=== PATIENT | male | born 1970 | race Caucasian/White ===

== ENCOUNTER 2018-08-25 08:17 | Emergency (ER) | payer MEDICAID, OTHER ==
[~2018-08-25] VITALS: Ht 180.3 cm; Wt 118.2 kg
[~2018-08-25 08:17] MED LIST: DIPH25CA83 PO
[2018-08-25 09:23] VITALS: BP 150/87
== END 2018-08-25 09:40 | disposition home or self-care (01) ==
LOC: ER 08:18
DX: R06.00 Dyspnea, unspecified (principal); G89.29 Other chronic pain; Z98.890 Other specified postprocedural states; Z88.5 Allergy status to narcotic agent; Z79.899 Other long term (current) drug therapy
CPT/HCPCS: 93971; 99284

== ENCOUNTER 2019-02-06 10:57 | Emergency (ER) | payer MEDICAID, OTHER ==
[~2019-02-06] VITALS: Ht 180.3 cm; Wt 122.0 kg
[2019-02-06] MEDS ORDERED: ipratropium/albuterol 3ml nebule NEB ONE (12:15)
[2019-02-06 12:42] LABS: BASOPHILS # (AUTO) 0.1 X10'3 (0-0.2); BASOPHILS % (AUTO) 1.3 % (0-1); EOSINOPHILS # (AUTO) 0.1 X10'3 (0-0.9); EOSINOPHILS % (AUTO) 1.6 % (0-6); HEMATOCRIT 46.2 % (42.0-52.0); HEMOGLOBIN 16.3 g/dl (14.0-17.9); LYMPHOCYTES # (AUTO) 1.1 X10'3 (1.1-4.8); LYMPHOCYTES % (AUTO) 13.1 % (21-51); MEAN CORPUSCULAR HGB CONC 35.3 g/dL (33.0-36.5); MEAN CORPUSCULAR VOLUME 101.9 FL (78-98); MEAN PLATELET VOLUME 8.2 FL (7.4-10.4); MONOCYTES # (AUTO) 0.9 X10'3 (0-0.9); NEUTROPHILS # (AUTO) 6.3 X10'3 (1.8-7.7); PLATELET COUNT 183 X10'3 (140-440); RED BLOOD COUNT 4.54 X10'6 (4.70-6.10); RED CELL DISTRIBUTION WIDTH 13.9 % (11.5-14.5); WHITE BLOOD COUNT 8.6 X10'3 (4.5-11.0)
--- NOTE | 2019-02-06 12:42 | NUR ---
Pt reports improvement in SOB symptoms after neb treatment.
[2019-02-06 12:55] LABS: ALANINE AMINOTRANSFERASE 52 U/L (12-78); ALBUMIN/GLOBULIN RATIO 0.8 (1.1-1.5); ALKALINE PHOSPHATASE 81 IU/L (46-116); ANION GAP 9 (8-16); ASPARTATE AMINO TRANSFERASE 47 U/L (10-37); BILIRUBIN,TOTAL 0.7 MG/DL (0.1-1.0); BLOOD UREA NITROGEN 5 MG/DL (7-18); BUN/CREATININE RATIO 5.3 (5.4-32.0); CALCIUM 7.7 MG/DL (8.5-10.1); CHLORIDE 104 MMOL/L (99-107); CREATININE 0.94 MG/DL (0.60-1.10); GLUCOSE 165 MG/DL (70-104); POTASSIUM 3.2 MMOL/L (3.5-5.1); SODIUM 142 MMOL/L (135-145); TOTAL CARBON DIOXIDE 29.3 MMOL/L (24-32); TOTAL PROTEIN 6.8 G/DL (6.4-8.2); eGFR 86 ML/MIN
[2019-02-06 13:03] LABS: MAGNESIUM 2.1 MG/DL (1.5-2.4)
[2019-02-06] MEDS ORDERED: ALBU8.5H8 IH (13:18)
[2019-02-06 13:28] VITALS: BP 189/91
== END 2019-02-06 13:30 | disposition home or self-care (01) ==
LOC: ER 10:57
DX: R06.02 Shortness of breath (principal); R06.00 Dyspnea, unspecified; R60.0 Localized edema; G89.29 Other chronic pain; Z98.890 Other specified postprocedural states; Z88.5 Allergy status to narcotic agent; Z79.899 Other long term (current) drug therapy
CPT/HCPCS: 36415; 71045; 80053; 83735; 83880; 84484; 85025; 94640; 94760; 99284

== ENCOUNTER 2020-05-01 17:01 | Emergency (ER) | payer MEDICAID ==
[~2020-05-01] VITALS: Ht 180.3 cm; Wt 113.6 kg
[~2020-05-01 17:01] MED LIST changes: +ALBU8.5H8 IH
[2020-05-01 20:06] LABS: BASOPHILS % (AUTO) 0.1 % (0-1); EOSINOPHILS # (AUTO) 0.2 X10'3 (0-0.9); HEMATOCRIT 39.4 % (42.0-52.0); HEMOGLOBIN 13.5 g/dl (14.0-17.9); LYMPHOCYTES # (AUTO) 0.8 X10'3 (1.1-4.8); LYMPHOCYTES % (AUTO) 5.1 % (21-51); MEAN CORPUSCULAR HEMOGLOBIN 31.8 PG (27.0-31.0); MEAN CORPUSCULAR HGB CONC 34.2 g/dL (33.0-36.5); MEAN PLATELET VOLUME 7.6 FL (7.4-10.4); MONOCYTES # (AUTO) 1.2 X10'3 (0-0.9); MONOCYTES % (AUTO) 7.9 % (2-12); NEUTROPHILS # (AUTO) 12.9 X10'3 (1.8-7.7); NEUTROPHILS % (AUTO) 85.9 % (42-75); PLATELET COUNT 476 X10'3 (140-440); RED BLOOD COUNT 4.23 X10'6 (4.70-6.10); RED CELL DISTRIBUTION WIDTH 14.2 % (11.5-14.5)
[2020-05-01 20:13] LABS: ALANINE AMINOTRANSFERASE 43 U/L (12-78); ALBUMIN 2.7 G/DL (3.4-5.0); ALBUMIN/GLOBULIN RATIO 0.5 (1.1-1.5); ALKALINE PHOSPHATASE 127 IU/L (46-116); ANION GAP 10 (8-16); ASPARTATE AMINO TRANSFERASE 37 U/L (10-37); BILIRUBIN,TOTAL 0.7 MG/DL (0.1-1.0); BLOOD UREA NITROGEN 8 MG/DL (7-18); BUN/CREATININE RATIO 9.5 (5.4-32.0); CALCIUM 8.8 MG/DL (8.5-10.1); CHLORIDE 97 MMOL/L (99-107); CREATININE 0.84 MG/DL (0.60-1.10); GLUCOSE 115 MG/DL (70-104); POTASSIUM 3.3 MMOL/L (3.5-5.1); SODIUM 136 MMOL/L (135-145); TOTAL PROTEIN 8.4 G/DL (6.4-8.2); eGFR > 90 ML/MIN
[2020-05-01 20:21] LABS: TOTAL CELLS COUNTED 100
[2020-05-01 20:22] LABS: PLATELET ESTIMATE INCREASED
[2020-05-01] MEDS ORDERED: BACDS PO (20:35)
[2020-05-01] MEDS ORDERED: CEPH250T PO (20:35)
[2020-05-01] MEDS ORDERED: ketorolac tromethamine 15mg/ml inj. IV ONE (20:45)
[2020-05-01] MEDS ORDERED: cephalexin 500mg capsule PO ONE (20:45)
[2020-05-01] MEDS ORDERED: sulfamethoxazole/trimethoprim DS (800/160mg) tablet PO ONE (20:45)
[2020-05-01 20:57] VITALS: BP 148/82
== END 2020-05-01 21:01 | disposition home or self-care (01) ==
LOC: ER 17:01
DX: L03.115 Cellulitis of right lower limb (principal); G89.29 Other chronic pain; M54.9 Dorsalgia, unspecified; F17.200 Nicotine dependence, unspecified, uncomplicated; F12.10 Cannabis abuse, uncomplicated; Z88.5 Allergy status to narcotic agent; Z79.899 Other long term (current) drug therapy
CPT/HCPCS: 36415; 80053; 83605; 84145; 85007; 85025; 87040; 96374; 99283; J1885

== ENCOUNTER 2021-03-06 13:53 | Inpatient (IN) | payer MEDICAID ==
[~2021-03-06] VITALS: Ht 180.3 cm; Wt 118.0 kg
[~2021-03-06 13:53] MED LIST changes: +ALBU8.5H17 IH; -ALBU8.5H8 IH; +adenosine 3mg/ml 2ml vial IV ONE; +amiodarone 50MG/ML inj IV ONE
[2021-03-06] MEDS ORDERED: aspirin 81mg tab.chew PO ONE (14:00)
[2021-03-06] MEDS ORDERED: normal saline 1000ML IV soln IVB ONE (14:00)
[2021-03-06] MEDS ORDERED: adenosine 3mg/ml 2ml vial IV ONE (14:00)
[2021-03-06] MEDS ORDERED: amiodarone 150mg/dext, iso-os 100 ML IV ONE (14:10)
[2021-03-06] MEDS: amiodarone/D5 360MG/200ML BAG 200 ML IV SCH ×3 (14:10→22:45)
[2021-03-06 14:35] LABS: BASOPHILS # (AUTO) 0.1 X10'3 (0-0.2); BASOPHILS % (AUTO) 0.7 % (0-1); EOSINOPHILS # (AUTO) 0.1 X10'3 (0-0.9); HEMATOCRIT 33.7 % (42.0-52.0); HEMOGLOBIN 11.5 g/dl (14.0-17.9); LYMPHOCYTES % (AUTO) 12.3 % (21-51); MEAN CORPUSCULAR HGB CONC 34.1 g/dL (33.0-36.5); MEAN CORPUSCULAR VOLUME 90.8 FL (78-98); MEAN PLATELET VOLUME 7.6 FL (7.4-10.4); MONOCYTES # (AUTO) 0.9 X10'3 (0-0.9); MONOCYTES % (AUTO) 10.5 % (2-12); NEUTROPHILS # (AUTO) 6.1 X10'3 (1.8-7.7); NEUTROPHILS % (AUTO) 75.5 % (42-75); PLATELET COUNT 375 X10'3 (140-440); RED BLOOD COUNT 3.71 X10'6 (4.70-6.10); RED CELL DISTRIBUTION WIDTH 14.9 % (11.5-14.5); WHITE BLOOD COUNT 8.1 X10'3 (4.5-11.0)
[2021-03-06 14:47] LABS: ALANINE AMINOTRANSFERASE 21 U/L (12-78); ALBUMIN 2.5 G/DL (3.4-5.0); ALBUMIN/GLOBULIN RATIO 0.6 (1.1-1.5); ALKALINE PHOSPHATASE 76 IU/L (46-116); ANION GAP 10 (8-16); ASPARTATE AMINO TRANSFERASE 19 U/L (10-37); BILIRUBIN,TOTAL 0.5 MG/DL (0.1-1.0); BLOOD UREA NITROGEN 19 MG/DL (7-18); BUN/CREATININE RATIO 16.2 (5.4-32.0); CALCIUM 7.2 MG/DL (8.5-10.1); CHLORIDE 106 MMOL/L (99-107); CREATININE 1.17 MG/DL (0.60-1.10); GLUCOSE 141 MG/DL (70-104); POTASSIUM 3.5 MMOL/L (3.5-5.1); SODIUM 142 MMOL/L (135-145); TOTAL CARBON DIOXIDE 26.3 MMOL/L (24-32); TOTAL PROTEIN 6.7 G/DL (6.4-8.2); eGFR 66 ML/MIN
[2021-03-06 14:54] LABS: TROPONIN I 0.08 NG/ML (0.0-0.05)
[2021-03-06] MEDS ORDERED: diltiazem 5mg/ml 5ml inj. IV ONE (16:35)
[2021-03-06] MEDS ORDERED: diltiazem-NS 100mg/100ml 100 ML IV SCH (16:40)
[2021-03-06] MEDS ORDERED: HYDR-3686 PO (17:08)
[2021-03-06] MEDS ORDERED: LISI-790 PO (17:08)
[2021-03-06] MEDS ORDERED: heparin 10,000 units/1 ML INJ IV ONE ×2 (17:20)
[2021-03-06] MEDS: heparin 25,000 UNIT/250ml bag 250 ML IV SCH (17:40)
[2021-03-06 17:42] LABS: ETHANOL < 0.010 GM/DL (0.0-0.010)
[2021-03-06] MEDS ORDERED: hydrOXYzine 25 MG tablet PO PRN (18:15)
[2021-03-06 18:29] LABS: URINE AMPHETAMINE SCREEN POSITIVE (Neg); URINE BARBITUATE SCREEN NEGATIVE (Neg); URINE BENZODIAZEPINES SCREEN NEGATIVE (Neg); URINE CANNABINOID SCREEN NEGATIVE (Neg); URINE COCAINE SCREEN NEGATIVE (Neg); URINE METHADONE SCREEN NEGATIVE (Neg); URINE OPIATE SCREEN NEGATIVE (Neg); URINE PHENCYCLIDINE SCREEN NEGATIVE (Neg)
[2021-03-06 18:36] LABS: CLARITY,URINE CLEAR (Clear); COLOR,URINE YELLOW (Yellow); GLUCOSE, URINE NEGATIVE (Neg); KETONES,URINE NEGATIVE (Neg); LEUKOCYTE ESTERASE ,URINE NEGATIVE (Neg); NITRITES, URINE NEGATIVE (Neg); OCCULT BLOOD,URINE NEGATIVE (Neg); PROTEIN,URINE 30 mg/dl (Neg); UA COLLECTION TYPE VOIDED; UROBILINOGEN,URINE 0.2 E.U/dL (0.2-1.0)
[2021-03-06 18:38] LABS: BACTERIA,URINE 1+ /HPF (Neg); RBC,URINE NONE SEEN /HPF (0-2)
[2021-03-06 18:39] LABS: MUCUS STRANDS MANY /LPF (Neg); SQUAMOUS EPITHELIAL CELL,UR FEW /LPF (FEW)
[2021-03-06] MEDS: heparin 10,000 units/1 ML INJ IV PRN (18:42)
[2021-03-06] MEDS ORDERED: HYDROmorphone inj. 0.5 MG/0.5 ML DISP.SYRIN IV PRN (18:45)
[2021-03-06] MEDS ORDERED: acetaminophen 325mg tablet PO PRN ×2 (18:45)
[2021-03-06] MEDS ORDERED: MIDAZolam 5mg/ml 2ml vial IV ONE (18:45)
[2021-03-06] MEDS ORDERED: LORazepam 2 mg/ml vial IV PRN (18:45)
[2021-03-06] MEDS ORDERED: bisacodyl 10mg suppository rectal RC PRN (18:45)
[2021-03-06] MEDS ORDERED: diphenhydrAMINE 25mg capsule PO PRN (18:45)
[2021-03-06] MEDS ORDERED: etomidate 2mg/ml inj. IV ONE (18:45)
[2021-03-06] MEDS ORDERED: magnesium hydroxide 30ml (MOM) UD suspension PO PRN (18:45)
[2021-03-06] MEDS ORDERED: PERFLUTREN PROTEIN-A MICROSPHR (Optison) 0.22 MG/ML 3ML VIAL IV ONE (18:45)
[2021-03-06] MEDS ORDERED: ondansetron/PF 4mg/2ml inj IV PRN (18:45)
[2021-03-06] MEDS ORDERED: magnesium 2GM in 50ml NS 50 ML IV PRN (18:45)
[2021-03-06] MEDS ORDERED: acetaminophen 650mg rectal suppository RC PRN (18:45)
[2021-03-06] MEDS ORDERED: potassium Cl 40MEQ/1/2NS 520ml 520 ML IV PRN ×2 (18:45)
[2021-03-06] MEDS ORDERED: potassium Cl 20 mEq SR tablet PO PRN ×2 (18:45)
[2021-03-06] MEDS ORDERED: mag hydrox/Alum hydrox/simeth 30ml oral suspension PO PRN (18:45)
[2021-03-06] MEDS ORDERED: magnesium 4gm in 100ml NS 100 ML IV PRN (18:45)
[2021-03-06] MEDS ORDERED: magnesium Cl slow-release 64mg tablet PO PRN (18:45)
[2021-03-06] MEDS ORDERED: HYDROcodone/acetaminophen 5mg/325mg tablet PO PRN (18:45)
[2021-03-06] MEDS ORDERED: iohexol 350MG/ML 100ml bottle IV ONE (18:54)
[2021-03-06 19:18] LABS: HEMOGLOBIN A1C 6.2 % (4.5-6.2)
[2021-03-06] MEDS: docusate sod 100mg capsule PO SCH (20:00)
[2021-03-06] MEDS: K and/or MAG REPLACEMENT MC SCH (20:28)
[2021-03-06] MEDS: normal saline 1000ml 1,000 ML IV SCH (20:32)
[2021-03-07] VITALS (12 sets, daily range): BP systolic 106–143; BP diastolic 56–78
[2021-03-07] MEDS: heparin 10,000 units/1 ML INJ IV PRN (02:02)
[2021-03-07 03:28] LABS: EOSINOPHILS # (AUTO) 0.2 X10'3 (0-0.9); HEMOGLOBIN 11.6 g/dl (14.0-17.9); MONOCYTES # (AUTO) 0.9 X10'3 (0-0.9)
[2021-03-07 03:30] LABS: BASOPHILS # (AUTO) 0.3 X10'3 (0-0.2); BASOPHILS % (AUTO) 3.6 % (0-1); EOSINOPHILS % (AUTO) 1.8 % (0-6); HEMATOCRIT 34.9 % (42.0-52.0); LYMPHOCYTES # (AUTO) 1.7 X10'3 (1.1-4.8); LYMPHOCYTES % (AUTO) 17.9 % (21-51); MEAN CORPUSCULAR HEMOGLOBIN 30.6 PG (27.0-31.0); MEAN CORPUSCULAR HGB CONC 33.2 g/dL (33.0-36.5); MEAN PLATELET VOLUME 7.6 FL (7.4-10.4); MONOCYTES % (AUTO) 9.4 % (2-12); NEUTROPHILS # (AUTO) 6.3 X10'3 (1.8-7.7); NEUTROPHILS % (AUTO) 67.3 % (42-75); PLATELET COUNT 304 X10'3 (140-440); RED BLOOD COUNT 3.79 X10'6 (4.70-6.10); RED CELL DISTRIBUTION WIDTH 14.8 % (11.5-14.5); WHITE BLOOD COUNT 9.3 X10'3 (4.5-11.0)
[2021-03-07 03:44] LABS: ALANINE AMINOTRANSFERASE 18 U/L (12-78); ALBUMIN 2.5 G/DL (3.4-5.0); ALBUMIN/GLOBULIN RATIO 0.6 (1.1-1.5); ALKALINE PHOSPHATASE 80 IU/L (46-116); ANION GAP 13 (8-16); ASPARTATE AMINO TRANSFERASE 27 U/L (10-37); BILIRUBIN,TOTAL 0.4 MG/DL (0.1-1.0); BLOOD UREA NITROGEN 19 MG/DL (7-18); BUN/CREATININE RATIO 19.4 (5.4-32.0); CALCIUM 7.7 MG/DL (8.5-10.1); CHLORIDE 106 MMOL/L (99-107); CREATININE 0.98 MG/DL (0.60-1.10); GLUCOSE 169 MG/DL (70-104); SODIUM 140 MMOL/L (135-145); TOTAL CARBON DIOXIDE 21.5 MMOL/L (24-32); TOTAL PROTEIN 6.9 G/DL (6.4-8.2); eGFR 81 ML/MIN
[2021-03-07 03:45] LABS: POTASSIUM 3.7 MMOL/L (3.5-5.1)
[2021-03-07 03:50] LABS: CHOL/HDL RATIO 7.8 (0.00-4.99); CHOLESTEROL 156 MG/DL (0-200); HDL CHOLESTEROL 20 MG/DL (35-60); LDL CHOLESTEROL 105 MG/DL (50-100); MAGNESIUM 2.2 MG/DL (1.5-2.4); PHOSPHORUS 3.6 MG/DL (2.3-4.5); TRIGLYCERIDES 126 MG/DL (20-135)
[2021-03-07 04:00] LABS: TOTAL CELLS COUNTED 100
[2021-03-07 04:02] LABS: PLATELET ESTIMATE NORMAL
[2021-03-07 04:03] LABS: LARGE PLATELETS FEW
--- NOTE | 2021-03-07 07:07 | NUR ---
Patient in room ED 6. I have received report from Ayla MASTERS and had the opportunity to ask questions and assume patient care.
[2021-03-07] MEDS: K and/or MAG REPLACEMENT MC SCH ×2 (08:12→19:59)
[2021-03-07] MEDS: lisinopril 5mg tablet PO SCH (08:28)
[2021-03-07] MEDS: docusate sod 100mg capsule PO SCH ×2 (08:28→19:42)
[2021-03-07] MEDS ORDERED: metoprolol tartrate 1mg/ml inj IV PRN (08:55)
[2021-03-07] MEDS ORDERED: regadenoson 0.4mg/5ml syringe IV PRN (08:55)
[2021-03-07] MEDS ORDERED: nitroGLYCERIN 0.4mg SUBLingual tab SL PRN (08:55)
[2021-03-07] MEDS ORDERED: aminophylline 250mg/10ml inj. IV PRN (08:55)
[2021-03-07] MEDS ORDERED: aspirin 81mg, enteric-coated 1 TAB TABLET.DR PO ONE (09:00)
--- NOTE | 2021-03-07 09:21 | NUR ---
ECHO is being completed now, Patient will remain NPO for Stress test teetee this afternoon around lunch time.
[2021-03-07] MEDS: atorvastatin 20mg tablet PO SCH (09:28)
[2021-03-07] MEDS: sotalol 80mg tablet PO SCH ×2 (09:28→19:39)
[2021-03-07] MEDS: heparin 25,000 UNIT/250ml bag 250 ML IV SCH ×2 (10:50→18:40)
[2021-03-07] MEDS ORDERED: iohexol 350MG/ML 100ml bottle IV ONE (11:23)
--- NOTE | 2021-03-07 11:32 | NUR ---
Michelle RN and CT staff here to take patient to CT and Marysol Scan.
[2021-03-07 13:03] LABS: HIV ANTIBODY 1&2 RAPID NON-REACTIVE (Neg)
--- NOTE | 2021-03-07 13:21 | NUR ---
Patient back from CT and Nuclear Med (Marysol Scan)
[2021-03-07] MEDS: normal saline 1000ml 1,000 ML IV SCH (13:36)
[2021-03-07] MEDS: HYDROcodone/acetaminophen 10/325mg tab PO PRN (13:37)
--- NOTE | 2021-03-07 14:47 | NUR ---
Problems reprioritized. Patient report given, questions answered & plan of care reviewed with Mary MASTERS.
[2021-03-07] MEDS ORDERED: thiamine inj. 100 MG in normal saline 100ml IV soln 100 ML IV ONE (23:20)
[2021-03-07] MEDS ORDERED: LORazepam 2 mg/ml vial IV PRN (23:20)
[2021-03-07] MEDS ORDERED: LORazepam 1 MG tablet PO PRN (23:20)
[2021-03-08 00:40] LABS: BASOPHILS % (AUTO) 0.5 % (0-1); EOSINOPHILS # (AUTO) 0.2 X10'3 (0-0.9); EOSINOPHILS % (AUTO) 2.6 % (0-6); HEMATOCRIT 30.7 % (42.0-52.0); HEMOGLOBIN 10.9 g/dl (14.0-17.9); LYMPHOCYTES # (AUTO) 1.7 X10'3 (1.1-4.8); LYMPHOCYTES % (AUTO) 20.5 % (21-51); MEAN CORPUSCULAR HEMOGLOBIN 31.8 PG (27.0-31.0); MEAN CORPUSCULAR HGB CONC 35.7 g/dL (33.0-36.5); MEAN PLATELET VOLUME 7.8 FL (7.4-10.4); MONOCYTES # (AUTO) 0.6 X10'3 (0-0.9); MONOCYTES % (AUTO) 7.8 % (2-12); NEUTROPHILS # (AUTO) 5.7 X10'3 (1.8-7.7); NEUTROPHILS % (AUTO) 68.6 % (42-75); PLATELET COUNT 395 X10'3 (140-440); RED BLOOD COUNT 3.44 X10'6 (4.70-6.10); RED CELL DISTRIBUTION WIDTH 14.8 % (11.5-14.5); WHITE BLOOD COUNT 8.3 X10'3 (4.5-11.0)
[2021-03-08 00:54] LABS: ALANINE AMINOTRANSFERASE 25 U/L (12-78); ALBUMIN 2.6 G/DL (3.4-5.0); ALBUMIN/GLOBULIN RATIO 0.6 (1.1-1.5); ALKALINE PHOSPHATASE 86 IU/L (46-116); ANION GAP 9 (8-16); ASPARTATE AMINO TRANSFERASE 22 U/L (10-37); BILIRUBIN,TOTAL 0.5 MG/DL (0.1-1.0); BLOOD UREA NITROGEN 20 MG/DL (7-18); BUN/CREATININE RATIO 18.5 (5.4-32.0); CALCIUM 8.2 MG/DL (8.5-10.1); CHLORIDE 105 MMOL/L (99-107); CREATININE 1.08 MG/DL (0.60-1.10); GLUCOSE 107 MG/DL (70-104); MAGNESIUM 2.1 MG/DL (1.5-2.4); PHOSPHORUS 4.5 MG/DL (2.3-4.5); POTASSIUM 4.2 MMOL/L (3.5-5.1); SODIUM 141 MMOL/L (135-145); TOTAL CARBON DIOXIDE 26.8 MMOL/L (24-32); TOTAL PROTEIN 7.2 G/DL (6.4-8.2); eGFR 72 ML/MIN
[2021-03-08 01:09] LABS: TOTAL CELLS COUNTED 100
[2021-03-08 01:10] LABS: PLATELET ESTIMATE NORMAL
[2021-03-08] MEDS: heparin 10,000 units/1 ML INJ IV PRN (01:50)
[2021-03-08] MEDS: heparin 25,000 UNIT/250ml bag 250 ML IV SCH (01:52)
[2021-03-08] MEDS ORDERED: ondansetron 4mg rapidly disintigrating tab PO PRN (04:40)
--- NOTE | 2021-03-08 06:19 | NUR ---
Problems reprioritized. Patient report given, questions answered & plan of care reviewed with GUERRERO Alvarez.
--- NOTE | 2021-03-08 06:30 | NUR ---
Patient in room PCU 3024. I have received report from Mel MASTERS and had the opportunity to ask questions and assume patient care.
[2021-03-08 07:00] VITALS: BP 133/98
[2021-03-08] MEDS: K and/or MAG REPLACEMENT MC SCH (07:09)
[2021-03-08] MEDS: atorvastatin 20mg tablet PO SCH (07:10)
[2021-03-08] MEDS: lisinopril 5mg tablet PO SCH (07:10)
[2021-03-08] MEDS: docusate sod 100mg capsule PO SCH (07:10)
[2021-03-08] MEDS: HYDROcodone/acetaminophen 10/325mg tab PO PRN ×2 (07:11→14:40)
[2021-03-08] MEDS: sotalol 80mg tablet PO SCH (07:11)
[2021-03-08] MEDS ORDERED: thiamine 100mg tablet PO SCH (08:00)
[2021-03-08] MEDS ORDERED: multivitamins, therapeutics tablet PO SCH (08:00)
[2021-03-08] MEDS ORDERED: aspirin 81mg, enteric-coated 1 TAB TABLET.DR PO SCH (08:00)
[2021-03-08] MEDS ORDERED: folic acid 1mg tablet PO SCH (08:00)
[2021-03-08] MEDS: normal saline 1000ml 1,000 ML IV SCH (10:08)
[2021-03-08 11:00] VITALS: BP 124/75
[2021-03-08 15:00] VITALS: BP 132/70
[2021-03-08 15:17] LABS: HBSAG SCREEN Negative (Negative); HEP A AB, IGM Negative (Negative); HEPATITIS C ANTIBODY <0.1 s/co ratio (0.0-0.9)
--- NOTE | 2021-03-08 15:32 | NUR ---
Paged Dr. Francis PAGER ID: [phone] MESSAGE: [facility] [id number] Data, Evan wants to leave AMA. He continues to walk down stairs and arguing with security. He states he does not care to be here for medical care even with telling him medical care is needed. Kim MASTERS [phone]
--- NOTE | 2021-03-08 15:37 | NUR ---
PAGER ID: [phone] MESSAGE: [facility] [id number] Data, Evan no longer wants to leave. He will stay and receive medical care. Kim MASTERS [phone]
[2021-03-08] MEDS ORDERED: ATOR10TA PO (15:52)
[2021-03-08] MEDS ORDERED: FOLI0.4T6 PO (15:52)
[2021-03-08] MEDS ORDERED: MULT-25 PO (15:52)
[2021-03-08] MEDS ORDERED: THIA100T70 PO (15:52)
[2021-03-08] MEDS ORDERED: ASPI-1071 PO (15:52)
[2021-03-08] MEDS ORDERED: SOTA80TA73 PO (15:52)
[2021-03-08] MEDS ORDERED: NITR0.4T51 SL (15:52)
--- NOTE | 2021-03-08 16:50 | NUR ---
Patient is stable and comfortable at time of discharge, Telemetry and PIVs removed with cannulas intact. No redness or irritation at PIV sites. Gathered all patient valuables and medication from our pharmacy and gave to patient. Gave and discussed in detail all discharge information and discharge education. Patient was able to ask questions and receive answers about discharge information and discharge education. Patient was able to verbalize back discharge information and discharge education. 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 Patient walked out to [facility] accompanied by Staff. Left hospital with Friend in private car.
== END 2021-03-08 17:00 | disposition home or self-care (01) | DRG 190 ==
LOC: ER 13:53 → ED HOLD 18:49 → PCU 3S 03-07 08:09
PROVIDERS: ADMIT Family Medicine; ATTEND Family Medicine
PROC: 5A2204Z Restoration of Cardiac Rhythm, Single (ICD-10-PCS; principal; 2021-03-06)
PROC: B32T1ZZ Computerized Tomography (CT Scan) of Left Pulmonary Artery using Low Osmolar Contrast (ICD-10-PCS; 2021-03-07)
PROC: B3201ZZ Computerized Tomography (CT Scan) of Thoracic Aorta using Low Osmolar Contrast (ICD-10-PCS; 2021-03-07)
PROC: B32S1ZZ Computerized Tomography (CT Scan) of Right Pulmonary Artery using Low Osmolar Contrast (ICD-10-PCS; 2021-03-07)
PROC: 4A02XM4 Measurement of Cardiac Total Activity, External Approach (ICD-10-PCS; 2021-03-07)
PROC: 3E073KZ Introduction of Other Diagnostic Substance into Coronary Artery, Percutaneous Approach (ICD-10-PCS; 2021-03-07)
DX: I21.4 Non-ST elevation (NSTEMI) myocardial infarction (principal); I50.33 Acute on chronic diastolic (congestive) heart failure; N17.9 Acute kidney failure, unspecified; I42.7 Cardiomyopathy due to drug and external agent; I47.1 Supraventricular tachycardia; G89.29 Other chronic pain; Z20.822 Contact with and (suspected) exposure to COVID-19; M54.9 Dorsalgia, unspecified; I48.0 Paroxysmal atrial fibrillation; T43.625A Adverse effect of amphetamines, initial encounter; F15.20 Other stimulant dependence, uncomplicated; F10.10 Alcohol abuse, uncomplicated; I11.0 Hypertensive heart disease with heart failure; Y90.9 Presence of alcohol in blood, level not specified; F43.10 Post-traumatic stress disorder, unspecified; F17.210 Nicotine dependence, cigarettes, uncomplicated; I25.10 Atherosclerotic heart disease of native coronary artery without angina pectoris; F32.9 Major depressive disorder, single episode, unspecified; F41.9 Anxiety disorder, unspecified; Z79.82 Long term (current) use of aspirin; Z79.899 Other long term (current) drug therapy; Z88.5 Allergy status to narcotic agent; Y92.89 Other specified places as the place of occurrence of the external cause; Z71.6 Tobacco abuse counseling; Z71.51 Drug abuse counseling and surveillance of drug abuser; Z82.49 Family history of ischemic heart disease and other diseases of the circulatory system
CPT/HCPCS: 36415; 71045; 71275; 78452; 80053; 80061; 80305; 80320; 81001; 83036; 83735; 83880; 84100; 84145; 84443; 84484; 85007; 85025; 85730; 86703; 86705; 86706; 86709; 86803; 87081; 87340; 87635; 93005; 93017; 93306; 93970; 94760; 94799; 96365; 96375; 99291; A9500; C9803; G0378; J0153; J1170; J1644; J2060; J2250; J2785; J3411; J3490; J7030; Q9967

== ENCOUNTER 2021-11-06 10:34 | Day surgery (SDC) | payer MEDICAID ==
[2021-11-02 13:27] LABS: BASOPHILS # (AUTO) 0.1 X10'3 (0-0.2); BASOPHILS % (AUTO) 0.8 % (0-1); EOSINOPHILS # (AUTO) 0.3 X10'3 (0-0.9); EOSINOPHILS % (AUTO) 2.9 % (0-6); HEMATOCRIT 40.8 % (42.0-52.0); HEMOGLOBIN 13.5 g/dl (14.0-17.9); LYMPHOCYTES # (AUTO) 1.3 X10'3 (1.1-4.8); LYMPHOCYTES % (AUTO) 14.4 % (21-51); MEAN CORPUSCULAR HGB CONC 33.2 g/dL (33.0-36.5); MEAN CORPUSCULAR VOLUME 87.6 FL (78-98); MEAN PLATELET VOLUME 7.8 FL (7.4-10.4); MONOCYTES # (AUTO) 0.8 X10'3 (0-0.9); MONOCYTES % (AUTO) 8.9 % (2-12); NEUTROPHILS # (AUTO) 6.7 X10'3 (1.8-7.7); PLATELET COUNT 278 X10'3 (140-440); RED BLOOD COUNT 4.66 X10'6 (4.70-6.10); RED CELL DISTRIBUTION WIDTH 14.3 % (11.5-14.5); WHITE BLOOD COUNT 9.2 X10'3 (4.5-11.0)
[2021-11-02 13:34] LABS: ALBUMIN 3.4 G/DL (3.4-5.0); ANION GAP 9 (8-16); BLOOD UREA NITROGEN 11 MG/DL (7-18); BUN/CREATININE RATIO 12.9 (5.4-32.0); CALCIUM 8.6 MG/DL (8.5-10.1); CHLORIDE 107 MMOL/L (99-107); CREATININE 0.85 MG/DL (0.60-1.10); GLUCOSE 137 MG/DL (70-104); POTASSIUM 3.9 MMOL/L (3.5-5.1); SODIUM 141 MMOL/L (135-145); TOTAL CARBON DIOXIDE 24.6 MMOL/L (24-32); eGFR > 90 ML/MIN
[2021-11-02 13:37] LABS: APTT 29 SECONDS (22-32)
[2021-11-06] VITALS (9 sets, daily range): BP systolic 116–191; BP diastolic 56–105
[~2021-11-06] VITALS: Ht 180.3 cm; Wt 138.9 kg
[~2021-11-06 10:34] MED LIST changes: -ALBU8.5H17 IH; +ASPI-1071 PO; +ATOR10TA PO; -DIPH25CA83 PO; +HYDR-3686 PO; +LISI5TAB22 PO; +MULT-25 PO; +NITR0.4T51 SL; +SOTA80TA73 PO; +THIA100T70 PO; -adenosine 3mg/ml 2ml vial IV ONE; -amiodarone 50MG/ML inj IV ONE
[2021-11-06] MEDS ORDERED: iohexol 350 MG/1 ML 200ml bottle ONE ×3 (11:00→13:37)
[2021-11-06] MEDS ORDERED: ASPI-1397 PO (11:03)
[2021-11-06] MEDS ORDERED: LISI10TA27 PO (11:07)
[2021-11-06] MEDS ORDERED: NITR0.4T48 (11:07)
[2021-11-06] MEDS ORDERED: GABA300C (11:08)
[2021-11-06] MEDS ORDERED: BACL10TA7 PO (11:10)
[2021-11-06] MEDS ORDERED: SOTA80TA46 PO (11:10)
[2021-11-06] MEDS ORDERED: LORazepam 0.5 MG tablet PO PRN (11:25)
[2021-11-06] MEDS ORDERED: diphenhydrAMINE 25mg capsule PO PRN (11:25)
[2021-11-06] MEDS ORDERED: normal saline 1,000 ML IV SCH (11:25)
[2021-11-06] MEDS ORDERED: nitroGLYCERIN-Tridil 50MG/D5W 250 ML IV ONE (11:56)
[2021-11-06] MEDS ORDERED: verapamil 2.5 mg/ml inj IV ONE (11:57)
[2021-11-06] MEDS ORDERED: heparin 1,000unit/ml 10ml vial 10 ML ONE ×2 (11:57→13:31)
[2021-11-06] MEDS ORDERED: fentaNYL/PF 50MCG/1 ML 2ML syringe ONE (11:57)
[2021-11-06] MEDS ORDERED: midazolam 1 mg/ML 2ml injection ONE (11:57)
[2021-11-06] MEDS ORDERED: LIDOcaine 1% 30ml preserv. free vial ONE (11:57)
[2021-11-06] MEDS ORDERED: aspirin 325mg tablet ONE (13:35)
[2021-11-06] MEDS ORDERED: clopidogrel 300mg tablet ONE ×2 (13:35→13:48)
[2021-11-06] MEDS ORDERED: ondansetron/PF 4mg/2ml inj IV PRN (14:25)
--- NOTE | 2021-11-06 14:57 | NUR ---
Pt was educated on the importance of administration and consistency needed in taking Plavix as ordered by physician. Pt states his brother in law is helping him with picking up the medication today. Pt verbalized understanding of importance of medication. He states, "ok, I know I need to take it". Will continue to educated and reinforce importance while patient is here.
--- NOTE | 2021-11-06 14:59 | NUR ---
contacted MD about pt BP as charted. New orders given.
[2021-11-06] MEDS ORDERED: hydrALAZINE 20mg/ml inj. IV ONE (15:00)
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
--- NOTE | 2021-11-06 15:49 | NUR ---
Brought patient 2nd sandwich as requested.
== END 2021-11-06 16:20 | disposition home or self-care (01) ==
LOC: SSTAY O 10:34
PROVIDERS: ATTEND Internal Medicine Interventional Cardiology
DX: R94.39 Abnormal result of other cardiovascular function study (principal); R07.89 Other chest pain; I25.10 Atherosclerotic heart disease of native coronary artery without angina pectoris; I10 Essential (primary) hypertension; E78.5 Hyperlipidemia, unspecified; F17.210 Nicotine dependence, cigarettes, uncomplicated; Z79.899 Other long term (current) drug therapy
CPT/HCPCS: 36415; 80048; 85025; 85610; 85730; 93005; 93458; 99152; 99153; C1725; C1751; C1769; C1874; C1894; C9600; J0360; J1644; J2250; J3010; J3490; Q9967; A4620; A5120; A6258

== ENCOUNTER 2021-11-26 18:22 | Emergency (ER) | payer MEDICAID ==
[~2021-11-26 18:22] MED LIST changes: -ASPI-1071 PO; +ASPI-1397 PO; -ATOR10TA PO; +BACL10TA7 PO; +GABA300C; -HYDR-3686 PO; +LISI10TA27 PO; -LISI5TAB22 PO; -MULT-25 PO; +NITR0.4T48; -NITR0.4T51 SL; +SOTA80TA46 PO; -SOTA80TA73 PO; -THIA100T70 PO
== END 2021-11-26 19:40 | disposition left against medical advice (07) ==
LOC: ER 18:22
DX: M25.511 Pain in right shoulder (principal); Z53.21 Procedure and treatment not carried out due to patient leaving prior to being seen by health care provider
CPT/HCPCS: 93005

== ENCOUNTER 2021-12-18 20:03 | Inpatient (IN) | payer MEDICAID ==
[~2021-12-18] VITALS: Ht 180.3 cm; Wt 127.3 kg
[2021-12-18 20:44] LABS: BASOPHILS # (AUTO) 0.1 X10'3 (0-0.2); EOSINOPHILS # (AUTO) 0.4 X10'3 (0-0.9); HEMOGLOBIN 12.8 g/dl (14.0-17.9); MEAN PLATELET VOLUME 7.3 FL (7.4-10.4)
[2021-12-18 20:45] LABS: BASOPHILS % (AUTO) 0.9 % (0-1); EOSINOPHILS % (AUTO) 4.7 % (0-6); LYMPHOCYTES # (AUTO) 1.5 X10'3 (1.1-4.8); MEAN CORPUSCULAR HEMOGLOBIN 30.5 PG (27.0-31.0); MEAN CORPUSCULAR HGB CONC 34.6 g/dL (33.0-36.5); MEAN CORPUSCULAR VOLUME 87.9 FL (78-98); MONOCYTES # (AUTO) 0.4 X10'3 (0-0.9); MONOCYTES % (AUTO) 5.2 % (2-12); NEUTROPHILS % (AUTO) 71.2 % (42-75); PLATELET COUNT 349 X10'3 (140-440); RED BLOOD COUNT 4.21 X10'6 (4.70-6.10); RED CELL DISTRIBUTION WIDTH 13.9 % (11.5-14.5); WHITE BLOOD COUNT 8.4 X10'3 (4.5-11.0)
[2021-12-18 20:59] LABS: ALANINE AMINOTRANSFERASE 18 U/L (12-78); ALBUMIN/GLOBULIN RATIO 0.7 (1.1-1.5); ALKALINE PHOSPHATASE 91 IU/L (46-116); ANION GAP 10 (8-16); ASPARTATE AMINO TRANSFERASE 12 U/L (10-37); BILIRUBIN,TOTAL 0.4 MG/DL (0.1-1.0); BLOOD UREA NITROGEN 10 MG/DL (7-18); BUN/CREATININE RATIO 9.9 (5.4-32.0); CALCIUM 8.4 MG/DL (8.5-10.1); CHLORIDE 105 MMOL/L (99-107); CREATININE 1.01 MG/DL (0.60-1.10); GLUCOSE 142 MG/DL (70-104); POTASSIUM 3.5 MMOL/L (3.5-5.1); SODIUM 141 MMOL/L (135-145); TOTAL PROTEIN 7.2 G/DL (6.4-8.2); eGFR 78 ML/MIN
[2021-12-18] MEDS ORDERED: temazepam 15mg capsule PO PRN (21:00)
[2021-12-18 21:11] LABS: PLATELET ESTIMATE NORMAL; TOTAL CELLS COUNTED 100
[2021-12-18 21:12] LABS: LARGE PLATELETS FEW
[2021-12-18 21:13] LABS: TOXIC VACUOLATION 1+
[2021-12-18] MEDS ORDERED: ondansetron 4mg rapidly disintigrating tab PO PRN (23:55)
[2021-12-18] MEDS ORDERED: acetaminophen 325mg tablet PO PRN ×2 (23:55)
[2021-12-18] MEDS: normal saline 1000ml 1,000 ML IV SCH (23:55)
[2021-12-18] MEDS ORDERED: diphenhydrAMINE 25mg capsule PO PRN (23:55)
[2021-12-18] MEDS ORDERED: HYDROmorphone inj. 0.5 MG/0.5 ML DISP.SYRIN IV PRN (23:55)
[2021-12-18] MEDS ORDERED: magnesium hydroxide 30ml (MOM) UD suspension PO PRN (23:55)
[2021-12-18] MEDS ORDERED: HYDROcodone/acetaminophen 5mg/325mg tablet PO PRN (23:55)
[2021-12-18] MEDS ORDERED: diphenhydrAMINE 50 mg/ml inj IV PRN (23:55)
[2021-12-18] MEDS ORDERED: acetaminophen 650mg rectal suppository RC PRN (23:55)
[2021-12-18] MEDS ORDERED: mag hydrox/Alum hydrox/simeth 30ml oral suspension PO PRN (23:55)
[2021-12-18] MEDS ORDERED: bisacodyl 10mg suppository rectal RC PRN (23:55)
[2021-12-19 00:44] LABS: URINE AMPHETAMINE SCREEN POSITIVE (Neg); URINE BARBITUATE SCREEN NEGATIVE (Neg); URINE BENZODIAZEPINES SCREEN NEGATIVE (Neg); URINE CANNABINOID SCREEN NEGATIVE (Neg); URINE COCAINE SCREEN NEGATIVE (Neg); URINE METHADONE SCREEN NEGATIVE (Neg); URINE OPIATE SCREEN NEGATIVE (Neg); URINE PHENCYCLIDINE SCREEN NEGATIVE (Neg)
[2021-12-19 00:50] LABS: HEMOGLOBIN A1C 6.1 % (4.5-6.2)
[2021-12-19 00:59] LABS: APTT 28 SECONDS (22-32)
[2021-12-19 01:01] LABS: MAGNESIUM 2.1 MG/DL (1.5-2.4); PHOSPHORUS 3.6 MG/DL (2.3-4.5)
--- NOTE | 2021-12-19 01:10 | NUR ---
CALLED PHARMACY. THEY ARE GETTING ZOSYN READY.
[2021-12-19] MEDS: heparin, porcine 5000 units/ml vial SQ SCH ×3 (01:31→17:15)
[2021-12-19] MEDS: piperacillin/tazo 4.5gm/100ml 100 ML IV SCH ×3 (01:31→16:06)
[2021-12-19] MEDS ORDERED: vancomycin inj 2,000 MG in normal saline 500ml IV soln 500 ML IV ONE (02:00)
[2021-12-19 02:43] LABS: BASOPHILS # (AUTO) 0.1 X10'3 (0-0.2); EOSINOPHILS # (AUTO) 0.4 X10'3 (0-0.9); EOSINOPHILS % (AUTO) 5.6 % (0-6); HEMATOCRIT 32.6 % (42.0-52.0); LYMPHOCYTES # (AUTO) 1.3 X10'3 (1.1-4.8); LYMPHOCYTES % (AUTO) 17.3 % (21-51); MEAN CORPUSCULAR HEMOGLOBIN 29.7 PG (27.0-31.0); MEAN CORPUSCULAR HGB CONC 33.8 g/dL (33.0-36.5); MEAN CORPUSCULAR VOLUME 87.7 FL (78-98); MEAN PLATELET VOLUME 7.6 FL (7.4-10.4); MONOCYTES # (AUTO) 0.7 X10'3 (0-0.9); MONOCYTES % (AUTO) 10.2 % (2-12); NEUTROPHILS # (AUTO) 4.8 X10'3 (1.8-7.7); NEUTROPHILS % (AUTO) 65.9 % (42-75); PLATELET COUNT 301 X10'3 (140-440); RED BLOOD COUNT 3.72 X10'6 (4.70-6.10); RED CELL DISTRIBUTION WIDTH 14.3 % (11.5-14.5); WHITE BLOOD COUNT 7.3 X10'3 (4.5-11.0)
[2021-12-19 02:57] LABS: ALBUMIN 2.3 G/DL (3.4-5.0); ANION GAP 8 (8-16); BILIRUBIN,TOTAL 0.3 MG/DL (0.1-1.0); BLOOD UREA NITROGEN 10 MG/DL (7-18); BUN/CREATININE RATIO 11.4 (5.4-32.0); CALCIUM 7.2 MG/DL (8.5-10.1); CHLORIDE 109 MMOL/L (99-107); CREATININE 0.88 MG/DL (0.60-1.10); GLUCOSE 125 MG/DL (70-104); POTASSIUM 3.1 MMOL/L (3.5-5.1); SODIUM 144 MMOL/L (135-145); TOTAL CARBON DIOXIDE 26.9 MMOL/L (24-32); TOTAL PROTEIN 5.8 G/DL (6.4-8.2); eGFR > 90 ML/MIN
[2021-12-19 02:58] LABS: ALANINE AMINOTRANSFERASE 14 U/L (12-78); ALBUMIN/GLOBULIN RATIO 0.7 (1.1-1.5); ALKALINE PHOSPHATASE 68 IU/L (46-116); ASPARTATE AMINO TRANSFERASE 10 U/L (10-37)
--- NOTE | 2021-12-19 03:50 | NUR ---
APPROX 10 MINUTES AFTER I STARTED VANCOMYCIN AT [facility] PRESCRIBED, PT WOKE UP AND STARTED YELLING THAT HE FELT UNWELL. PT DIAPHORETIC, FEELING "HOT", URINATED ON HIMSELF. MEDICATION IMMEDIATELY STOPPED. LINES DRAWN. GAVE PT 25 MG BENADRYL IV AND THEN CALLED DR CAPONE BIZTALK ARCHITECT STUDENT REMAINED WITH PATIENT. DR CAPONE GAVE TELEPHONE ORDERS FOR ANOTHER 25 MG BENADRYL IV TO BE GIVEN NOW, 20 MG PEPCID IV NOW, AND 125 MG SOLUMEDROL IV NOW. ORDERS REPEATED BACK FOR ACCURACY AND PLACED.
[2021-12-19] MEDS ORDERED: methylPREDNISolone sod succ 125mg/2ml vial IV ONE (03:55)
[2021-12-19] MEDS ORDERED: diphenhydrAMINE 50 mg/ml inj IV ONE (03:55)
[2021-12-19] MEDS ORDERED: famotidine/PF 10 mg/ml inj IV ONE (03:55)
[2021-12-19] MEDS ORDERED: epiNEPHrine 1 mg/ml inj IM STA (04:10)
--- NOTE | 2021-12-19 04:10 | NUR ---
PT OVERALL HAS IMPROVED APPEARANCE. HOWEVER, HIS EYES SEEM MORE EDEMATOUS THAN THEY WERE WHEN HE FIRST ARRIVED AND BP IS LOW. CALLED DR CAPONE AND RECIEVED ORDER FOR 0.3 MG EPI IM TO BE GIVEN NOW. ORDER REPEATED BACK FOR ACCURACY AND PLACED.
--- NOTE | 2021-12-19 04:25 | NUR ---
PT OVERALL APPEARANCE IS IMPROVED. PLACED ON OXYGEN NASAL CANNULA FOR COMFORT. LINENS CHANGED. PT PLACED ON NEW GOWN.
--- NOTE | 2021-12-19 05:54 | NUR ---
RECIEVED TELEPHONE ORDER BY DR CAPONE FOR ANCEF Q8 HRS. ORDER REPEATED BACK FOR ACCURACY AND PLACED. PT WILL NO LONGER RECIEVE VANCO PER DR CAPONE.
[2021-12-19] MEDS ORDERED: magnesium 2GM in 50ml NS 50 ML IV PRN (07:10)
[2021-12-19] MEDS ORDERED: POTASSIUM BICARB 20meq eff tab 20 MEQ TABLET.EFF PO PRN (07:10)
[2021-12-19] MEDS ORDERED: magnesium 4gm in 100ml NS 100 ML IV PRN (07:10)
[2021-12-19] MEDS ORDERED: potassium CL 10mEq/100ml bag 100 ML IV PRN (07:10)
[2021-12-19] MEDS ORDERED: magnesium Cl slow-release 64mg tablet PO PRN (07:10)
[2021-12-19] MEDS: K and/or MAG REPLACEMENT MC SCH ×2 (07:16→19:40)
[2021-12-19] MEDS: ceFAZolin/D5W- 1GM premix 50 ML IV SCH ×2 (08:00→15:18)
[2021-12-19 08:15] LABS: POTASSIUM 4.3 MMOL/L (3.5-5.1)
[2021-12-19 08:57] LABS: MAGNESIUM 1.8 MG/DL (1.5-2.4)
[2021-12-19] MEDS: furosemide 10 MG/1 ML 10ml inj IV SCH ×2 (09:28→19:39)
[2021-12-19] MEDS: HYDROchlorothiazide 25mg tablet PO SCH ×2 (09:29→19:40)
[2021-12-19] MEDS: docusate sod 100mg capsule PO SCH ×2 (09:29→19:40)
[2021-12-19] MEDS: pantoprazole 40mg Tablet.DR PO SCH (09:31)
[2021-12-19] MEDS: POTASSIUM BICARB 20meq eff tab 20 MEQ TABLET.EFF PO PRN ×2 (09:39→12:27)
[2021-12-19] MEDS: HYDROcodone/acetaminophen 10/325mg tab PO PRN ×3 (11:06→22:12)
[2021-12-19 13:37] VITALS: BP 158/76
--- NOTE | 2021-12-19 16:15 | NUR ---
Patient in room ED 9. I have received report from krissy melo and had the opportunity to ask questions and assume patient care.
[2021-12-19 16:56] VITALS: BP 162/70
--- NOTE | 2021-12-19 17:07 | NUR ---
Page Sent PAGER ID: [phone] MESSAGE: [id number] b Data, pt has multiple wounds I am going to put in a wound consult... srikanth [phone]
--- NOTE | 2021-12-19 17:20 | NUR ---
Report to Sarahi MASTERS. Pt transferred to 4010A with belongings.
--- NOTE | 2021-12-19 18:30 | NUR ---
Problems reprioritized. Patient report given, questions answered & plan of care reviewed with eloise melo.
--- NOTE | 2021-12-19 18:40 | NUR ---
Patient in room ORTHO 4010. I have received report from Chiqui MASTERS and had the opportunity to ask questions and assume patient care.
[2021-12-19] MEDS ORDERED: ATOR10TA70 PO (19:31)
[2021-12-19] MEDS ORDERED: LISI10TA27 PO (19:31)
[2021-12-19] MEDS ORDERED: CLOP75TA34 PO (19:31)
[2021-12-19] MEDS ORDERED: NITR0.4T51 PO (19:31)
[2021-12-19] MEDS: linezolid 600mg/300ml PREMIX 300 ML IV SCH (19:38)
[2021-12-19 22:00] VITALS: BP 123/53
[2021-12-20] MEDS: ceFAZolin/D5W- 1GM premix 50 ML IV SCH ×3 (00:10→15:20)
[2021-12-20] MEDS: piperacillin/tazo 4.5gm/100ml 100 ML IV SCH ×3 (00:44→16:33)
[2021-12-20] MEDS: heparin, porcine 5000 units/ml vial SQ SCH ×3 (00:47→16:34)
[2021-12-20] MEDS: HYDROcodone/acetaminophen 10/325mg tab PO PRN ×3 (05:48→22:52)
[2021-12-20 06:00] VITALS: BP 109/58
--- NOTE | 2021-12-20 06:21 | NUR ---
Problems reprioritized. Patient report given, questions answered & plan of care reviewed with Chiqui MASTERS.
--- NOTE | 2021-12-20 06:40 | NUR ---
Patient in room ORTHO 4010. I have received report from eloise melo and had the opportunity to ask questions and assume patient care.
[2021-12-20] MEDS: docusate sod 100mg capsule PO SCH ×2 (07:08→20:02)
[2021-12-20] MEDS: pantoprazole 40mg Tablet.DR PO SCH (07:08)
[2021-12-20] MEDS: HYDROchlorothiazide 25mg tablet PO SCH ×2 (07:16→20:02)
[2021-12-20] MEDS: furosemide 10 MG/1 ML 10ml inj IV SCH ×2 (07:17→19:59)
[2021-12-20 07:45] LABS: BASOPHILS % (AUTO) 0.2 % (0-1); EOSINOPHILS % (AUTO) 0.2 % (0-6); HEMATOCRIT 37.5 % (42.0-52.0); HEMOGLOBIN 12.9 g/dl (14.0-17.9); LYMPHOCYTES # (AUTO) 1.6 X10'3 (1.1-4.8); LYMPHOCYTES % (AUTO) 10.7 % (21-51); MEAN CORPUSCULAR HGB CONC 34.3 g/dL (33.0-36.5); MEAN CORPUSCULAR VOLUME 87.7 FL (78-98); MEAN PLATELET VOLUME 7.8 FL (7.4-10.4); MONOCYTES # (AUTO) 1.3 X10'3 (0-0.9); MONOCYTES % (AUTO) 8.5 % (2-12); NEUTROPHILS # (AUTO) 12.3 X10'3 (1.8-7.7); NEUTROPHILS % (AUTO) 80.4 % (42-75); PLATELET COUNT 360 X10'3 (140-440); RED BLOOD COUNT 4.28 X10'6 (4.70-6.10); WHITE BLOOD COUNT 15.3 X10'3 (4.5-11.0)
[2021-12-20] MEDS: K and/or MAG REPLACEMENT MC SCH ×2 (08:00→20:00)
[2021-12-20] MEDS: linezolid 600mg/300ml PREMIX 300 ML IV SCH ×2 (08:13→20:01)
[2021-12-20 08:14] LABS: ALANINE AMINOTRANSFERASE 18 U/L (12-78); ALBUMIN 2.9 G/DL (3.4-5.0); ALBUMIN/GLOBULIN RATIO 0.7 (1.1-1.5); ALKALINE PHOSPHATASE 72 IU/L (46-116); ANION GAP 8 (8-16); ASPARTATE AMINO TRANSFERASE 14 U/L (10-37); BILIRUBIN,TOTAL 0.3 MG/DL (0.1-1.0); BLOOD UREA NITROGEN 21 MG/DL (7-18); BUN/CREATININE RATIO 19.1 (5.4-32.0); CALCIUM 8.9 MG/DL (8.5-10.1); CHLORIDE 101 MMOL/L (99-107); GLUCOSE 130 MG/DL (70-104); POTASSIUM 4.1 MMOL/L (3.5-5.1); SODIUM 138 MMOL/L (135-145); TOTAL CARBON DIOXIDE 29.2 MMOL/L (24-32); TOTAL PROTEIN 7.1 G/DL (6.4-8.2); eGFR 71 ML/MIN
[2021-12-20 10:00] VITALS: BP 127/71
[2021-12-20 11:42] LABS: PLATELET ESTIMATE NORMAL; TOTAL CELLS COUNTED 100
--- NOTE | 2021-12-20 12:09 | NUR ---
Noted pt receiving routine Linezolid. Per EMR pt with BLE cellulitis, wound care assessment pending at this time. Pt seen at bedside for written and verbal high protein and low tyramine nutrition therapy educations. Pt verbalized understanding. Pt s/p BSS with ST recs SB6 food with thin liquids. Pt eating well, documented with 75-100% PO intake. Pt reports he's still hungry following meals and agrees to double eggs WB, double meat BIDLD, and yogurt TID, d/w dietary. RD informed pt of floor nourishment room should he still be hungry following nutrition interventions. Pt denies food allergies or difficulty chewing/swallowing. RD contact information provided and pt encouraged to reach out if needed. Will continue to follow. Addendum: 12/20/21 at [address] Amended: Links added.
--- NOTE | 2021-12-20 12:58 | NUR ---
dr mckoy informed of pt med rec needing to be done
[2021-12-20] MEDS ORDERED: nitroGLYCERIN 0.4mg SUBLingual tab SL PRN (13:00)
[2021-12-20] MEDS ORDERED: chlorhexidine gluc 4% **topical ** 120ml btl. TP SCH (13:40)
--- NOTE | 2021-12-20 14:05 | NUR ---
contacted pharmacy about chlorhexidine wash and it is not ready yet
--- NOTE | 2021-12-20 14:38 | NUR ---
Page Sent PAGER ID: [phone] MESSAGE: [phone] a Data, pt just feels like he has chest pressure. I am wondering if its related to his anxiety. can we order him some Ativan see if that helps? [id number]
--- NOTE | 2021-12-20 15:00 | NUR ---
i agree with srikanth software engineer intern, will continue to monitor patient
--- NOTE | 2021-12-20 15:35 | NUR ---
Patient in room ORTHO 4010. I have received report from RIRI MASTERS and had the opportunity to ask questions and assume patient care.
--- NOTE | 2021-12-20 15:36 | NUR ---
Problems reprioritized. Patient report given, questions answered & plan of care reviewed with RICHARD MASTERS.
[2021-12-20 18:00] VITALS: BP 113/41
[2021-12-20] MEDS ORDERED: PERFLUTREN PROTEIN-A MICROSPHR (Optison) 0.22 MG/ML 3ML VIAL IV ONE (18:30)
--- NOTE | 2021-12-20 18:38 | NUR ---
Patient in room ORTHO 4010. I have received report from Tanja MASTERS and had the opportunity to ask questions and assume patient care.
[2021-12-20] MEDS: LORazepam 0.5 MG tablet PO PRN (21:39)
[2021-12-20 22:00] VITALS: BP 146/54
[2021-12-20] MEDS: normal saline 1000ml 1,000 ML IV SCH (23:55)
[2021-12-21] MEDS: ceFAZolin/D5W- 1GM premix 50 ML IV SCH ×2 (00:23→08:08)
[2021-12-21] MEDS: heparin, porcine 5000 units/ml vial SQ SCH ×4 (00:26→23:55)
[2021-12-21] MEDS: piperacillin/tazo 4.5gm/100ml 100 ML IV SCH ×4 (01:02→23:56)
[2021-12-21] MEDS: HYDROcodone/acetaminophen 10/325mg tab PO PRN ×3 (05:35→19:58)
[2021-12-21 06:00] VITALS: BP 154/67
--- NOTE | 2021-12-21 06:21 | NUR ---
Problems reprioritized. Patient report given, questions answered & plan of care reviewed with Nneka TAYLOR.
--- NOTE | 2021-12-21 06:30 | NUR ---
Patient in room ORTHO 4010. I have received report from Jes MASTERS and had the opportunity to ask questions and assume patient care.
[2021-12-21] MEDS: pantoprazole 40mg Tablet.DR PO SCH (07:53)
[2021-12-21] MEDS: atorvastatin 10mg tablet PO SCH (07:53)
[2021-12-21] MEDS: docusate sod 100mg capsule PO SCH ×2 (07:53→19:57)
[2021-12-21] MEDS: clopidogrel 75mg tablet PO SCH (07:53)
[2021-12-21 07:57] LABS: EOSINOPHILS # (AUTO) 0.3 X10'3 (0-0.9); EOSINOPHILS % (AUTO) 2.5 % (0-6); MEAN CORPUSCULAR HGB CONC 33.4 g/dL (33.0-36.5); MONOCYTES # (AUTO) 0.9 X10'3 (0-0.9)
[2021-12-21 07:59] LABS: BASOPHILS # (AUTO) 0.1 X10'3 (0-0.2); BASOPHILS % (AUTO) 0.9 % (0-1); HEMATOCRIT 41.2 % (42.0-52.0); HEMOGLOBIN 13.8 g/dl (14.0-17.9); LYMPHOCYTES # (AUTO) 2.6 X10'3 (1.1-4.8); LYMPHOCYTES % (AUTO) 24.2 % (21-51); MEAN CORPUSCULAR HEMOGLOBIN 29.4 PG (27.0-31.0); MONOCYTES % (AUTO) 8.3 % (2-12); NEUTROPHILS # (AUTO) 6.8 X10'3 (1.8-7.7); NEUTROPHILS % (AUTO) 64.1 % (42-75); PLATELET COUNT 363 X10'3 (140-440); RED BLOOD COUNT 4.68 X10'6 (4.70-6.10); RED CELL DISTRIBUTION WIDTH 14.3 % (11.5-14.5); WHITE BLOOD COUNT 10.6 X10'3 (4.5-11.0)
[2021-12-21] MEDS: K and/or MAG REPLACEMENT MC SCH ×2 (07:59→19:57)
[2021-12-21] MEDS: lisinopril 10 MG tablet PO SCH (08:01)
[2021-12-21] MEDS: HYDROchlorothiazide 25mg tablet PO SCH ×2 (08:01→19:58)
[2021-12-21] MEDS: furosemide 10 MG/1 ML 10ml inj IV SCH ×2 (08:08→19:57)
[2021-12-21 08:18] LABS: ALANINE AMINOTRANSFERASE 18 U/L (12-78); ALBUMIN 3.2 G/DL (3.4-5.0); ALBUMIN/GLOBULIN RATIO 0.7 (1.1-1.5); ALKALINE PHOSPHATASE 72 IU/L (46-116); ANION GAP 9 (8-16); ASPARTATE AMINO TRANSFERASE 17 U/L (10-37); BILIRUBIN,TOTAL 0.4 MG/DL (0.1-1.0); BLOOD UREA NITROGEN 28 MG/DL (7-18); BUN/CREATININE RATIO 21.5 (5.4-32.0); CALCIUM 8.6 MG/DL (8.5-10.1); CHLORIDE 98 MMOL/L (99-107); GLUCOSE 98 MG/DL (70-104); MAGNESIUM 2.1 MG/DL (1.5-2.4); POTASSIUM 3.7 MMOL/L (3.5-5.1); SODIUM 140 MMOL/L (135-145); TOTAL CARBON DIOXIDE 33.2 MMOL/L (24-32); TOTAL PROTEIN 7.5 G/DL (6.4-8.2); eGFR 58 ML/MIN
[2021-12-21 08:50] LABS: PLATELET ESTIMATE NORMAL; TOTAL CELLS COUNTED 100
[2021-12-21] MEDS: linezolid 600mg/300ml PREMIX 300 ML IV SCH (09:01)
[2021-12-21] MEDS: mupirocin 2% ointment 22GM TP SCH (09:25)
[2021-12-21] MEDS: vitamin A & D ointment-NF 1 APPLIC TUBE TP SCH (09:26)
[2021-12-21 10:00] VITALS: BP 140/69
[2021-12-21] MEDS: chlorhexidine gluc 4% **topical ** 120ml btl. TP SCH (14:05)
[2021-12-21] MEDS: LORazepam 0.5 MG tablet PO PRN (16:30)
--- NOTE | 2021-12-21 17:30 | NUR ---
CITIZENSHIP INSTRUCTOR documentation: I have reviewed and agree with all interventions, assessments performed and documented by Nneka Cardoza LVN.
[2021-12-21 18:00] VITALS: BP 122/58
--- NOTE | 2021-12-21 18:43 | NUR ---
Problems reprioritized. Patient report given, questions answered & plan of care reviewed with Jes MASTERS.
[2021-12-21] MEDS: linezolid 600mg tablet PO SCH (19:58)
[2021-12-21 22:00] VITALS: BP 101/59
[2021-12-21] MEDS: ondansetron/PF 4mg/2ml inj IV PRN (22:16)
[2021-12-22] MEDS: HYDROcodone/acetaminophen 10/325mg tab PO PRN ×2 (05:13→16:56)
[2021-12-22 06:00] VITALS: BP 143/57
--- NOTE | 2021-12-22 06:18 | NUR ---
Problems reprioritized. Patient report given, questions answered & plan of care reviewed with Tanja MASTERS.
[2021-12-22 06:26] LABS: BASOPHILS # (AUTO) 0.1 X10'3 (0-0.2); BASOPHILS % (AUTO) 1.1 % (0-1); EOSINOPHILS # (AUTO) 0.4 X10'3 (0-0.9); EOSINOPHILS % (AUTO) 3.2 % (0-6); HEMATOCRIT 41.1 % (42.0-52.0); HEMOGLOBIN 13.8 g/dl (14.0-17.9); LYMPHOCYTES % (AUTO) 17.2 % (21-51); MEAN CORPUSCULAR HGB CONC 33.7 g/dL (33.0-36.5); MEAN CORPUSCULAR VOLUME 89.1 FL (78-98); MEAN PLATELET VOLUME 7.6 FL (7.4-10.4); MONOCYTES # (AUTO) 1.3 X10'3 (0-0.9); MONOCYTES % (AUTO) 11.2 % (2-12); NEUTROPHILS # (AUTO) 7.8 X10'3 (1.8-7.7); NEUTROPHILS % (AUTO) 67.3 % (42-75); PLATELET COUNT 369 X10'3 (140-440); RED BLOOD COUNT 4.61 X10'6 (4.70-6.10); RED CELL DISTRIBUTION WIDTH 13.9 % (11.5-14.5); WHITE BLOOD COUNT 11.6 X10'3 (4.5-11.0)
[2021-12-22 06:47] LABS: ALANINE AMINOTRANSFERASE 23 U/L (12-78); ALBUMIN 3.2 G/DL (3.4-5.0); ALBUMIN/GLOBULIN RATIO 0.7 (1.1-1.5); ALKALINE PHOSPHATASE 71 IU/L (46-116); ANION GAP 6 (8-16); ASPARTATE AMINO TRANSFERASE 23 U/L (10-37); BILIRUBIN,TOTAL 0.4 MG/DL (0.1-1.0); BLOOD UREA NITROGEN 38 MG/DL (7-18); BUN/CREATININE RATIO 21.8 (5.4-32.0); CALCIUM 8.7 MG/DL (8.5-10.1); CHLORIDE 97 MMOL/L (99-107); CREATININE 1.74 MG/DL (0.60-1.10); GLUCOSE 117 MG/DL (70-104); MAGNESIUM 2.5 MG/DL (1.5-2.4); POTASSIUM 3.7 MMOL/L (3.5-5.1); SODIUM 139 MMOL/L (135-145); TOTAL CARBON DIOXIDE 35.7 MMOL/L (24-32); TOTAL PROTEIN 7.6 G/DL (6.4-8.2); eGFR 42 ML/MIN
[2021-12-22 07:04] LABS: PLATELET ESTIMATE NORMAL; TOTAL CELLS COUNTED 100
[2021-12-22] MEDS: ondansetron/PF 4mg/2ml inj IV PRN (07:51)
[2021-12-22] MEDS: furosemide 10 MG/1 ML 10ml inj IV SCH (07:55)
[2021-12-22] MEDS: heparin, porcine 5000 units/ml vial SQ SCH ×2 (07:56→15:14)
[2021-12-22] MEDS: lisinopril 10 MG tablet PO SCH (07:57)
[2021-12-22] MEDS: piperacillin/tazo 4.5gm/100ml 100 ML IV SCH ×2 (07:57→15:15)
[2021-12-22] MEDS: docusate sod 100mg capsule PO SCH ×2 (07:58→20:00)
[2021-12-22] MEDS: atorvastatin 10mg tablet PO SCH (07:59)
[2021-12-22] MEDS: clopidogrel 75mg tablet PO SCH (07:59)
[2021-12-22] MEDS: pantoprazole 40mg Tablet.DR PO SCH (07:59)
[2021-12-22] MEDS: linezolid 600mg tablet PO SCH ×2 (07:59→20:00)
[2021-12-22] MEDS: HYDROchlorothiazide 25mg tablet PO SCH ×2 (07:59→20:00)
[2021-12-22] MEDS: mupirocin 2% ointment 22GM TP SCH (08:00)
[2021-12-22] MEDS: vitamin A & D ointment-NF 1 APPLIC TUBE TP SCH (08:00)
[2021-12-22] MEDS: K and/or MAG REPLACEMENT MC SCH ×2 (08:00→20:00)
[2021-12-22] MEDS: LORazepam 0.5 MG tablet PO PRN (08:01)
[2021-12-22] MEDS ORDERED: proCHLORperazine 10 MG/2 ml inj IV PRN (09:40)
[2021-12-22 10:00] VITALS: BP 128/71
[2021-12-22] MEDS ORDERED: normal saline 500ml IV soln 500 ML IV ONE (10:05)
[2021-12-22] MEDS ORDERED: mag hydrox/Alum hydrox/simeth 30ml oral suspension PO ONE (10:05)
[2021-12-22] MEDS: chlorhexidine gluc 4% **topical ** 120ml btl. TP SCH (15:14)
--- NOTE | 2021-12-22 16:05 | NUR ---
Patient in room ORTHO 4010. I have received report from daniele melo and had the opportunity to ask questions and assume patient care.
--- NOTE | 2021-12-22 16:08 | NUR ---
i agree with all documentation and assessments by Tanja MASTERS at time of taking over her pts.
--- NOTE | 2021-12-22 16:14 | NUR ---
waiting for fluids to come up from pharmacy
[2021-12-22] MEDS: Potassium Cl inj 20 MEQ in normal saline 1000ml 990 ML IV SCH (16:57)
--- NOTE | 2021-12-22 17:05 | NUR ---
per pharmacist fluids and zosyn y site compatible
[2021-12-22 18:00] VITALS: BP 127/47
--- NOTE | 2021-12-22 18:31 | NUR ---
Problems reprioritized. Patient report given, questions answered & plan of care reviewed with rema melo.
--- NOTE | 2021-12-22 19:00 | NUR ---
Patient in room ORTHO 4012. I have received report from CARLOS A MASTERS and had the opportunity to ask questions and assume patient care.
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
[2021-12-22 22:00] VITALS: BP 138/59
[2021-12-22] MEDS: normal saline 1000ml 1,000 ML IV SCH (23:55)
[2021-12-23] MEDS: piperacillin/tazo 4.5gm/100ml 100 ML IV SCH ×3 (00:22→16:00)
[2021-12-23] MEDS: heparin, porcine 5000 units/ml vial SQ SCH ×4 (00:22→16:00)
[2021-12-23] MEDS: Potassium Cl inj 20 MEQ in normal saline 1000ml 990 ML IV SCH ×2 (01:35→11:35)
[2021-12-23 06:00] VITALS: BP 153/69
--- NOTE | 2021-12-23 06:09 | NUR ---
Problems reprioritized. Patient report given, questions answered & plan of care reviewed with CARLOS A MASTERS.
--- NOTE | 2021-12-23 06:51 | NUR ---
Patient in room ORTHO 4012. I have received report from HARSHA MASTERS and had the opportunity to ask questions and assume patient care.
[2021-12-23 06:54] LABS: ALANINE AMINOTRANSFERASE 43 U/L (12-78); ALBUMIN 3.2 G/DL (3.4-5.0); ALBUMIN/GLOBULIN RATIO 0.7 (1.1-1.5); ALKALINE PHOSPHATASE 74 IU/L (46-116); ANION GAP 5 (8-16); ASPARTATE AMINO TRANSFERASE 38 U/L (10-37); BILIRUBIN,TOTAL 0.6 MG/DL (0.1-1.0); BLOOD UREA NITROGEN 34 MG/DL (7-18); BUN/CREATININE RATIO 26.6 (5.4-32.0); CALCIUM 8.7 MG/DL (8.5-10.1); CHLORIDE 99 MMOL/L (99-107); CREATININE 1.28 MG/DL (0.60-1.10); GLUCOSE 114 MG/DL (70-104); MAGNESIUM 2.7 MG/DL (1.5-2.4); POTASSIUM 4.1 MMOL/L (3.5-5.1); SODIUM 135 MMOL/L (135-145); TOTAL CARBON DIOXIDE 31.4 MMOL/L (24-32); TOTAL PROTEIN 7.6 G/DL (6.4-8.2); eGFR 59 ML/MIN
[2021-12-23 07:00] LABS: BASOPHILS # (AUTO) 0.1 X10'3 (0-0.2); EOSINOPHILS # (AUTO) 0.4 X10'3 (0-0.9); HEMATOCRIT 39.5 % (42.0-52.0); HEMOGLOBIN 13.4 g/dl (14.0-17.9); LYMPHOCYTES # (AUTO) 1.4 X10'3 (1.1-4.8); LYMPHOCYTES % (AUTO) 12.7 % (21-51); MEAN CORPUSCULAR HEMOGLOBIN 29.8 PG (27.0-31.0); MEAN CORPUSCULAR HGB CONC 33.9 g/dL (33.0-36.5); MEAN PLATELET VOLUME 7.9 FL (7.4-10.4); MONOCYTES # (AUTO) 0.9 X10'3 (0-0.9); MONOCYTES % (AUTO) 7.7 % (2-12); NEUTROPHILS # (AUTO) 8.3 X10'3 (1.8-7.7); NEUTROPHILS % (AUTO) 74.6 % (42-75); PLATELET COUNT 364 X10'3 (140-440); RED BLOOD COUNT 4.49 X10'6 (4.70-6.10); RED CELL DISTRIBUTION WIDTH 14.3 % (11.5-14.5); WHITE BLOOD COUNT 11.1 X10'3 (4.5-11.0)
[2021-12-23] MEDS: K and/or MAG REPLACEMENT MC SCH (08:00)
[2021-12-23] MEDS: docusate sod 100mg capsule PO SCH (08:14)
[2021-12-23] MEDS: lisinopril 10 MG tablet PO SCH (08:15)
[2021-12-23] MEDS: HYDROchlorothiazide 25mg tablet PO SCH (08:16)
[2021-12-23] MEDS: pantoprazole 40mg Tablet.DR PO SCH (08:16)
[2021-12-23] MEDS: atorvastatin 10mg tablet PO SCH (08:16)
[2021-12-23] MEDS: clopidogrel 75mg tablet PO SCH (08:16)
[2021-12-23] MEDS: HYDROcodone/acetaminophen 10/325mg tab PO PRN ×2 (08:21→15:24)
[2021-12-23] MEDS: mupirocin 2% ointment 22GM TP SCH (08:21)
[2021-12-23] MEDS: linezolid 600mg tablet PO SCH (08:21)
[2021-12-23] MEDS: vitamin A & D ointment-NF 1 APPLIC TUBE TP SCH (08:22)
[2021-12-23 09:01] LABS: TOTAL CELLS COUNTED 100
[2021-12-23 09:03] LABS: PLATELET ESTIMATE NORMAL; POIKILOCYTOSIS FEW; STOMATOCYTES FEW
[2021-12-23 10:00] VITALS: BP 109/59
[2021-12-23] MEDS: chlorhexidine gluc 4% **topical ** 120ml btl. TP SCH (14:05)
[2021-12-23] MEDS ORDERED: DOXY100C2 PO (15:04)
--- NOTE | 2021-12-23 15:53 | NUR ---
pt is stable for discharge, iv is discharged and cannula is intact, meds from pharmacy were given to the pt to take home, all discharge info was gone over and signed, all belongings taken, pt was walked down to lobby and friend picked him up in a private vehicle.
--- NOTE | 2021-12-23 16:03 | NUR ---
wound pictures were taken on discharge
== END 2021-12-23 15:53 | disposition home or self-care (01) | DRG 383 ==
LOC: ER 20:04 → ED HOLD 23:59 → ORTHO 4S 12-19 16:00
PROVIDERS: ADMIT Family Medicine; ATTEND Family Medicine
DX: L03.115 Cellulitis of right lower limb (principal); I50.43 Acute on chronic combined systolic (congestive) and diastolic (congestive) heart failure; N17.9 Acute kidney failure, unspecified; L97.919 Non-pressure chronic ulcer of unspecified part of right lower leg with unspecified severity; L03.116 Cellulitis of left lower limb; D64.9 Anemia, unspecified; I11.0 Hypertensive heart disease with heart failure; M54.9 Dorsalgia, unspecified; E66.01 Morbid (severe) obesity due to excess calories; L97.929 Non-pressure chronic ulcer of unspecified part of left lower leg with unspecified severity; E78.5 Hyperlipidemia, unspecified; F15.129 Other stimulant abuse with intoxication, unspecified; G89.4 Chronic pain syndrome; F41.1 Generalized anxiety disorder; E86.0 Dehydration; I25.10 Atherosclerotic heart disease of native coronary artery without angina pectoris; L30.9 Dermatitis, unspecified; T50.2X5A Adverse effect of carbonic-anhydrase inhibitors, benzothiadiazides and other diuretics, initial encounter; Z79.02 Long term (current) use of antithrombotics/antiplatelets; I25.2 Old myocardial infarction; Z86.14 Personal history of Methicillin resistant Staphylococcus aureus infection; Z95.5 Presence of coronary angioplasty implant and graft; Z68.39 Body mass index [BMI] 39.0-39.9, adult; Z88.8 Allergy status to other drugs, medicaments and biological substances; Z79.899 Other long term (current) drug therapy; Z79.82 Long term (current) use of aspirin; Z71.51 Drug abuse counseling and surveillance of drug abuser; E87.6 Hypokalemia; I95.2 Hypotension due to drugs; Y92.230 Patient room in hospital as the place of occurrence of the external cause
CPT/HCPCS: 36415; 73718; 73721; 80053; 80305; 83036; 83605; 83735; 83880; 84100; 84132; 85007; 85025; 85610; 85730; 87040; 87081; 92508; 92616; 93005; 93306; 97116; 97161; 97530; 99285; A6212; A6446; G0378; J0171; J0690; J0780; J1200; J1644; J1940; J2020; J2405; J2543; J2930; J3370; J3480; J3490; J7030; J7040

== ENCOUNTER 2022-01-07 19:17 | Emergency (ER) | payer MEDICAID ==
[~2022-01-07] VITALS: Ht 180.3 cm; Wt 131.8 kg
[~2022-01-07 19:17] MED LIST changes: -ASPI-1397 PO; +ATOR10TA70 PO; -BACL10TA7 PO; +CLOP75TA34 PO; +DOXY100C2 PO; -GABA300C; -NITR0.4T48; +NITR0.4T51 PO; -SOTA80TA46 PO
[2022-01-07 19:35] VITALS: BP 140/95
[2022-01-07 20:00] LABS: EOSINOPHILS # (AUTO) 0.2 X10'3 (0-0.9); HEMOGLOBIN 13.5 g/dl (14.0-17.9); MONOCYTES # (AUTO) 0.7 X10'3 (0-0.9); RED CELL DISTRIBUTION WIDTH 14.5 % (11.5-14.5)
[2022-01-07 20:02] LABS: BASOPHILS % (AUTO) 0.1 % (0-1); EOSINOPHILS % (AUTO) 2.5 % (0-6); HEMATOCRIT 39.9 % (42.0-52.0); LYMPHOCYTES # (AUTO) 1.9 X10'3 (1.1-4.8); MEAN CORPUSCULAR HEMOGLOBIN 30.2 PG (27.0-31.0); MEAN CORPUSCULAR HGB CONC 33.9 g/dL (33.0-36.5); MEAN CORPUSCULAR VOLUME 88.9 FL (78-98); MEAN PLATELET VOLUME 7.7 FL (7.4-10.4); NEUTROPHILS # (AUTO) 6.5 X10'3 (1.8-7.7); NEUTROPHILS % (AUTO) 69.4 % (42-75); PLATELET COUNT 323 X10'3 (140-440); RED BLOOD COUNT 4.49 X10'6 (4.70-6.10); WHITE BLOOD COUNT 9.4 X10'3 (4.5-11.0)
[2022-01-07 20:07] LABS: ALANINE AMINOTRANSFERASE 27 U/L (12-78); ALBUMIN 3.2 G/DL (3.4-5.0); ALBUMIN/GLOBULIN RATIO 0.7 (1.1-1.5); ALKALINE PHOSPHATASE 85 IU/L (46-116); ANION GAP 8 (8-16); ASPARTATE AMINO TRANSFERASE 15 U/L (10-37); BILIRUBIN,TOTAL 0.3 MG/DL (0.1-1.0); BLOOD UREA NITROGEN 11 MG/DL (7-18); BUN/CREATININE RATIO 11.1 (5.4-32.0); CALCIUM 8.8 MG/DL (8.5-10.1); CHLORIDE 107 MMOL/L (99-107); CREATININE 0.99 MG/DL (0.60-1.10); GLUCOSE 130 MG/DL (70-104); POTASSIUM 3.7 MMOL/L (3.5-5.1); SODIUM 142 MMOL/L (135-145); TOTAL CARBON DIOXIDE 27.2 MMOL/L (24-32); TOTAL PROTEIN 7.6 G/DL (6.4-8.2); eGFR 80 ML/MIN
== END 2022-01-07 22:12 | disposition left against medical advice (07) ==
LOC: ER 19:18
DX: R07.89 Other chest pain (principal); Z53.21 Procedure and treatment not carried out due to patient leaving prior to being seen by health care provider
CPT/HCPCS: 36415; 71045; 80053; 83880; 84484; 85025

== ENCOUNTER 2022-01-08 12:25 | Emergency (ER) | payer MEDICAID ==
[~2022-01-08] VITALS: Ht 180.3 cm; Wt 127.3 kg
[2022-01-08 12:32] VITALS: BP 175/94
--- NOTE | 2022-01-08 12:42 | NUR ---
spoke with ioana lujan regarding pt here last night and had full workup completed but lwob. order received for ekg and troponin labs only, no other labs needed. orders placed as received
== END 2022-01-08 12:26 | disposition left against medical advice (07) ==
LOC: ER 12:26
DX: R07.89 Other chest pain (principal); Z53.21 Procedure and treatment not carried out due to patient leaving prior to being seen by health care provider
CPT/HCPCS: 36415; 84484; 93005

== ENCOUNTER 2022-01-20 18:00 | Emergency (ER) | payer MEDICAID ==
[~2022-01-20] VITALS: Ht 180.3 cm; Wt 127.3 kg
[~2022-01-20 18:00] MED LIST changes: -DOXY100C2 PO
[2022-01-20 18:09] VITALS: BP 151/88
[2022-01-20] MEDS ORDERED: HYDROcodone/acetaminophen 5mg/325mg tablet PO ONE ×2 (19:55→21:10)
--- NOTE | 2022-01-20 20:03 | NUR ---
po med given
[2022-01-20] MEDS ORDERED: HYDR-3965 PO (21:36)
== END 2022-01-20 21:33 | disposition home or self-care (01) ==
LOC: ER 18:01
DX: M77.32 Calcaneal spur, left foot (principal); M79.672 Pain in left foot; I25.10 Atherosclerotic heart disease of native coronary artery without angina pectoris; E78.00 Pure hypercholesterolemia, unspecified; I10 Essential (primary) hypertension; I25.2 Old myocardial infarction; G89.29 Other chronic pain; F17.200 Nicotine dependence, unspecified, uncomplicated; F12.90 Cannabis use, unspecified, uncomplicated; F15.90 Other stimulant use, unspecified, uncomplicated; Z72.89 Other problems related to lifestyle; Z86.19 Personal history of other infectious and parasitic diseases; Z95.5 Presence of coronary angioplasty implant and graft; Z86.16 Personal history of COVID-19; Z88.1 Allergy status to other antibiotic agents; Z88.8 Allergy status to other drugs, medicaments and biological substances; Z88.5 Allergy status to narcotic agent; Z79.899 Other long term (current) drug therapy
CPT/HCPCS: 73630; 99283

== ENCOUNTER 2022-06-27 15:23 | Emergency (ER) | payer MEDICAID ==
[~2022-06-27] VITALS: Ht 180.3 cm; Wt 127.3 kg
[~2022-06-27 15:23] MED LIST changes: +HYDR-3965 PO
[2022-06-27 17:57] LABS: BASOPHILS # (AUTO) 0.1 X10'3 (0-0.2); BASOPHILS % (AUTO) 0.8 % (0-1); EOSINOPHILS # (AUTO) 0.2 X10'3 (0-0.9); EOSINOPHILS % (AUTO) 1.6 % (0-6); HEMATOCRIT 44.2 % (42.0-52.0); HEMOGLOBIN 14.4 g/dl (14.0-17.9); LYMPHOCYTES # (AUTO) 1.7 X10'3 (1.1-4.8); LYMPHOCYTES % (AUTO) 14.7 % (21-51); MEAN CORPUSCULAR HEMOGLOBIN 29.2 PG (27.0-31.0); MEAN CORPUSCULAR HGB CONC 32.5 g/dL (33.0-36.5); MEAN CORPUSCULAR VOLUME 89.6 FL (78-98); MEAN PLATELET VOLUME 8.2 FL (7.4-10.4); MONOCYTES # (AUTO) 0.8 X10'3 (0-0.9); NEUTROPHILS % (AUTO) 75.9 % (42-75); PLATELET COUNT 331 X10'3 (140-440); RED BLOOD COUNT 4.94 X10'6 (4.70-6.10); RED CELL DISTRIBUTION WIDTH 14.5 % (11.5-14.5); WHITE BLOOD COUNT 11.8 X10'3 (4.5-11.0)
[2022-06-27 18:21] LABS: ALANINE AMINOTRANSFERASE 24 U/L (12-78); ALBUMIN 3.6 G/DL (3.4-5.0); ALBUMIN/GLOBULIN RATIO 0.8 (1.1-1.5); ALKALINE PHOSPHATASE 100 IU/L (46-116); ANION GAP 8 (8-16); ASPARTATE AMINO TRANSFERASE 19 U/L (10-37); BILIRUBIN,TOTAL 0.4 MG/DL (0.1-1.0); BLOOD UREA NITROGEN 14 MG/DL (7-18); BUN/CREATININE RATIO 14.9 (5.4-32.0); CHLORIDE 102 MMOL/L (99-107); CREATININE 0.94 MG/DL (0.60-1.10); GLUCOSE 131 MG/DL (70-104); POTASSIUM 4.8 MMOL/L (3.5-5.1); SODIUM 142 MMOL/L (135-145); TOTAL CARBON DIOXIDE 32.2 MMOL/L (24-32); TOTAL PROTEIN 8.3 G/DL (6.4-8.2); eGFR 84 ML/MIN
[2022-06-27 19:38] LABS: PLATELET ESTIMATE NORMAL; TOTAL CELLS COUNTED 100
[2022-06-27] MEDS ORDERED: CLIN150C2 PO (23:34)
[2022-06-27] MEDS ORDERED: acetaminophen 325mg tablet PO ONE (23:35)
[2022-06-27] MEDS ORDERED: ibuprofen tablet 400 MG TABLET PO ONE (23:35)
[2022-06-27] MEDS ORDERED: clindamycin 150mg capsule PO ONE (23:35)
[2022-06-27] MEDS ORDERED: ondansetron 4mg rapidly disintigrating tab PO ONE (23:35)
[2022-06-27 23:55] VITALS: BP 199/115
--- NOTE | 2022-06-28 00:15 | NUR ---
I agree with Miguel Angel Worthington assessment.
[2022-07-04] MEDS ORDERED: LISI40TA13 PO (18:05)
[2022-07-04] MEDS ORDERED: ASPI81TA52 PO (18:05)
== END 2022-06-28 04:14 | disposition home or self-care (01) ==
LOC: ER 15:24
DX: L03.116 Cellulitis of left lower limb (principal); L03.115 Cellulitis of right lower limb; I25.10 Atherosclerotic heart disease of native coronary artery without angina pectoris; E78.00 Pure hypercholesterolemia, unspecified; I10 Essential (primary) hypertension; I25.2 Old myocardial infarction; G89.29 Other chronic pain; F12.90 Cannabis use, unspecified, uncomplicated; F15.90 Other stimulant use, unspecified, uncomplicated; Z98.890 Other specified postprocedural states; Z95.5 Presence of coronary angioplasty implant and graft; Z88.1 Allergy status to other antibiotic agents; Z88.5 Allergy status to narcotic agent; Z79.899 Other long term (current) drug therapy
CPT/HCPCS: 36415; 71045; 80053; 83880; 84484; 85007; 85025; 93005; 99285

== ENCOUNTER 2022-07-07 21:40 | Inpatient (IN) | payer MEDICAID ==
[~2022-07-07] VITALS: Ht 180.3 cm; Wt 122.7 kg
[~2022-07-07 21:40] MED LIST changes: +ASPI81TA52 PO; +CLIN150C2 PO; +DILT120C94 PO; -HYDR-3965 PO; -LISI10TA27 PO; +LISI40TA13 PO
[2022-07-07 21:55] LABS: BASOPHILS # (AUTO) 0.1 X10'3 (0-0.2); BASOPHILS % (AUTO) 1.1 % (0-1); EOSINOPHILS # (AUTO) 0.2 X10'3 (0-0.9); EOSINOPHILS % (AUTO) 1.7 % (0-6); HEMATOCRIT 40.7 % (42.0-52.0); HEMOGLOBIN 13.4 g/dl (14.0-17.9); LYMPHOCYTES # (AUTO) 1.6 X10'3 (1.1-4.8); MEAN CORPUSCULAR HGB CONC 32.9 g/dL (33.0-36.5); MEAN PLATELET VOLUME 7.9 FL (7.4-10.4); MONOCYTES # (AUTO) 0.8 X10'3 (0-0.9); MONOCYTES % (AUTO) 8.8 % (2-12); NEUTROPHILS # (AUTO) 6.4 X10'3 (1.8-7.7); NEUTROPHILS % (AUTO) 70.4 % (42-75); PLATELET COUNT 275 X10'3 (140-440); RED BLOOD COUNT 4.62 X10'6 (4.70-6.10); RED CELL DISTRIBUTION WIDTH 14.7 % (11.5-14.5); WHITE BLOOD COUNT 9.1 X10'3 (4.5-11.0)
[2022-07-07] MEDS ORDERED: diltiazem 5mg/ml 5ml inj. IV ONE (22:10)
[2022-07-07] MEDS ORDERED: ondansetron/PF 4mg/2ml inj IV ONE (22:10)
[2022-07-07] MEDS ORDERED: normal saline 1000ML IV soln IVB ONE (22:15)
[2022-07-07 22:19] LABS: ALANINE AMINOTRANSFERASE 21 U/L (12-78); ALBUMIN 3.4 G/DL (3.4-5.0); ALBUMIN/GLOBULIN RATIO 0.9 (1.1-1.5); ALKALINE PHOSPHATASE 82 IU/L (46-116); ANION GAP 6 (8-16); ASPARTATE AMINO TRANSFERASE 14 U/L (10-37); BILIRUBIN,TOTAL 0.5 MG/DL (0.1-1.0); BLOOD UREA NITROGEN 21 MG/DL (7-18); BUN/CREATININE RATIO 19.6 (5.4-32.0); CALCIUM 8.3 MG/DL (8.5-10.1); CHLORIDE 107 MMOL/L (99-107); CREATININE 1.07 MG/DL (0.60-1.10); GLUCOSE 122 MG/DL (70-104); MAGNESIUM 1.9 MG/DL (1.5-2.4); POTASSIUM 4.2 MMOL/L (3.5-5.1); SODIUM 143 MMOL/L (135-145); TOTAL CARBON DIOXIDE 29.9 MMOL/L (24-32); TOTAL PROTEIN 7.4 G/DL (6.4-8.2); eGFR 73 ML/MIN
[2022-07-07] MEDS ORDERED: DILT-35 PO (23:11)
[2022-07-07] MEDS ORDERED: CLIN-30 PO (23:17)
[2022-07-07] MEDS: normal saline 1000ml 1,000 ML IV SCH (23:40)
[2022-07-07] MEDS ORDERED: ondansetron/PF 4mg/2ml inj IV PRN (23:40)
[2022-07-07] MEDS ORDERED: magnesium 4gm in 100ml NS 100 ML IV PRN (23:40)
[2022-07-07] MEDS ORDERED: potassium Cl 40MEQ/1/2NS 520ml 520 ML IV PRN (23:40)
[2022-07-07] MEDS ORDERED: magnesium Cl slow-release 64mg tablet PO PRN (23:40)
[2022-07-07] MEDS ORDERED: potassium Cl 20 mEq SR tablet PO PRN ×2 (23:40)
[2022-07-07] MEDS ORDERED: magnesium hydroxide 30ml (MOM) UD suspension PO PRN (23:40)
[2022-07-07] MEDS ORDERED: mag hydrox/Alum hydrox/simeth 30ml oral suspension PO PRN (23:40)
[2022-07-07] MEDS ORDERED: diltiazem-NS 100mg/100ml 100 ML IV SCH (23:50)
[2022-07-08] VITALS (8 sets, daily range): BP systolic 92–125; BP diastolic 57–80
[2022-07-08 00:45] LABS: D-DIMER 0.59 MG/L FEU (0-0.50)
[2022-07-08 03:29] LABS: BASOPHILS # (AUTO) 0.1 X10'3 (0-0.2); BASOPHILS % (AUTO) 1.1 % (0-1); EOSINOPHILS # (AUTO) 0.2 X10'3 (0-0.9); EOSINOPHILS % (AUTO) 2.2 % (0-6); HEMATOCRIT 39.2 % (42.0-52.0); LYMPHOCYTES # (AUTO) 1.8 X10'3 (1.1-4.8); LYMPHOCYTES % (AUTO) 18.1 % (21-51); MEAN CORPUSCULAR HEMOGLOBIN 29.3 PG (27.0-31.0); MEAN CORPUSCULAR HGB CONC 33.1 g/dL (33.0-36.5); MEAN CORPUSCULAR VOLUME 88.4 FL (78-98); MEAN PLATELET VOLUME 8.1 FL (7.4-10.4); MONOCYTES # (AUTO) 0.9 X10'3 (0-0.9); MONOCYTES % (AUTO) 8.5 % (2-12); NEUTROPHILS % (AUTO) 70.1 % (42-75); PLATELET COUNT 265 X10'3 (140-440); RED BLOOD COUNT 4.43 X10'6 (4.70-6.10); RED CELL DISTRIBUTION WIDTH 14.8 % (11.5-14.5)
[2022-07-08 03:58] LABS: PLATELET ESTIMATE NORMAL; TOTAL CELLS COUNTED 100
--- NOTE | 2022-07-08 06:24 | NUR ---
report from lorie packer for continuation of care. pt is sleeping easily arousable. denies symptoms at this time. resp even unlabored. morning labs have been drawn. skin w/d/i cr. cardz infusing at 20ml/hr and ns at 100 ml/hr. afib on monitor with occasional pvc. pending call to floor for report. Addendum: 07/08/22 at 0628 by GASPIRIN correction cardizem drip at 10 ml/hr not 20 ml/hr
[2022-07-08 06:54] LABS: ALANINE AMINOTRANSFERASE 20 U/L (12-78); ALBUMIN 3.3 G/DL (3.4-5.0); ALBUMIN/GLOBULIN RATIO 0.8 (1.1-1.5); ALKALINE PHOSPHATASE 78 IU/L (46-116); ANION GAP 5 (8-16); ASPARTATE AMINO TRANSFERASE 19 U/L (10-37); BILIRUBIN,TOTAL 0.6 MG/DL (0.1-1.0); BLOOD UREA NITROGEN 21 MG/DL (7-18); BUN/CREATININE RATIO 22.6 (5.4-32.0); CALCIUM 8.1 MG/DL (8.5-10.1); CHLORIDE 108 MMOL/L (99-107); CREATININE 0.93 MG/DL (0.60-1.10); GLUCOSE 111 MG/DL (70-104); POTASSIUM 4.6 MMOL/L (3.5-5.1); SODIUM 141 MMOL/L (135-145); TOTAL PROTEIN 7.2 G/DL (6.4-8.2); eGFR 85 ML/MIN
--- NOTE | 2022-07-08 07:27 | NUR ---
I received report from ED at 0645. Pt arrived to floor at 0700 on Card. running at 10. BP was 92/63 in Afib with HR at 60s to 80's. Asymptomatic. I paged MD and held drip. per tele order. will continue to monitor. Pt also stated he had homicidal thoughts because people are annoying. I searched his personal belongings and he has a sweatshirt, shoes, a t shirt and sweats. No weapons found. I assessed him further and he stated he will not hurt anyone. He does request a private room. both AM and Pm charge RNs were informed and staff warned.
[2022-07-08] MEDS: K and/or MAG REPLACEMENT MC SCH ×2 (08:00→20:00)
[2022-07-08] MEDS ORDERED: clindamycin 150mg capsule PO SCH (08:00)
[2022-07-08] MEDS ORDERED: docusate sod 100mg capsule PO SCH (08:00)
[2022-07-08] MEDS: atorvastatin 10mg tablet PO SCH (09:11)
[2022-07-08] MEDS: lisinopril 20mg tablet PO SCH (09:11)
[2022-07-08] MEDS: clopidogrel 75mg tablet PO SCH (09:12)
[2022-07-08] MEDS: heparin, porcine 5000 units/ml vial SQ SCH ×2 (09:14→20:03)
[2022-07-08] MEDS: diltiazem 30mg tablet PO SCH ×2 (12:10→20:03)
[2022-07-08] MEDS ORDERED: diltiazem 30mg tablet PO SCH (14:00)
[2022-07-08] MEDS: acetaminophen 325mg tablet PO PRN ×2 (23:01→23:02)
[2022-07-09] MEDS: diltiazem 30mg tablet PO SCH ×3 (02:00→13:41)
[2022-07-09 06:00] VITALS: BP 107/52
[2022-07-09] MEDS ORDERED: diltiazem 30mg tablet PO ONE (06:25)
[2022-07-09] MEDS: K and/or MAG REPLACEMENT MC SCH ×2 (08:00→18:47)
[2022-07-09] MEDS: lisinopril 20mg tablet PO SCH (08:49)
[2022-07-09] MEDS: atorvastatin 10mg tablet PO SCH (08:49)
[2022-07-09] MEDS: heparin, porcine 5000 units/ml vial SQ SCH (08:49)
[2022-07-09] MEDS: clopidogrel 75mg tablet PO SCH (08:49)
[2022-07-09 10:00] VITALS: BP 125/73
[2022-07-09 10:22] LABS: BASOPHILS # (AUTO) 0.1 X10'3 (0-0.2); BASOPHILS % (AUTO) 1.1 % (0-1); EOSINOPHILS # (AUTO) 0.3 X10'3 (0-0.9); EOSINOPHILS % (AUTO) 3.8 % (0-6); HEMATOCRIT 39.5 % (42.0-52.0); LYMPHOCYTES # (AUTO) 1.3 X10'3 (1.1-4.8); LYMPHOCYTES % (AUTO) 16.2 % (21-51); MEAN CORPUSCULAR HEMOGLOBIN 29.1 PG (27.0-31.0); MEAN CORPUSCULAR VOLUME 88.3 FL (78-98); MEAN PLATELET VOLUME 8.3 FL (7.4-10.4); MONOCYTES # (AUTO) 0.8 X10'3 (0-0.9); MONOCYTES % (AUTO) 9.7 % (2-12); NEUTROPHILS # (AUTO) 5.5 X10'3 (1.8-7.7); NEUTROPHILS % (AUTO) 69.2 % (42-75); PLATELET COUNT 234 X10'3 (140-440); RED BLOOD COUNT 4.47 X10'6 (4.70-6.10); RED CELL DISTRIBUTION WIDTH 14.5 % (11.5-14.5); WHITE BLOOD COUNT 7.9 X10'3 (4.5-11.0)
[2022-07-09 10:34] LABS: ALANINE AMINOTRANSFERASE 19 U/L (12-78); ALBUMIN 3.2 G/DL (3.4-5.0); ALBUMIN/GLOBULIN RATIO 0.8 (1.1-1.5); ALKALINE PHOSPHATASE 76 IU/L (46-116); ANION GAP 8 (8-16); ASPARTATE AMINO TRANSFERASE 12 U/L (10-37); BILIRUBIN,TOTAL 0.5 MG/DL (0.1-1.0); BLOOD UREA NITROGEN 19 MG/DL (7-18); BUN/CREATININE RATIO 21.1 (5.4-32.0); CALCIUM 8.8 MG/DL (8.5-10.1); CHLORIDE 105 MMOL/L (99-107); GLUCOSE 112 MG/DL (70-104); MAGNESIUM 2.1 MG/DL (1.5-2.4); POTASSIUM 4.3 MMOL/L (3.5-5.1); SODIUM 140 MMOL/L (135-145); TOTAL CARBON DIOXIDE 27.1 MMOL/L (24-32); eGFR 89 ML/MIN
[2022-07-09 11:41] VITALS: BP 118/81
[2022-07-09 15:09] VITALS: BP 99/63
[2022-07-09 18:00] VITALS: BP 114/83
[2022-07-09] MEDS: sotalol 80mg tablet PO SCH (19:07)
[2022-07-09] MEDS: apixaban 5mg tablet PO SCH (19:08)
[2022-07-09 22:00] VITALS: BP 107/51
[2022-07-09] MEDS: LORazepam 2 mg/ml vial IV PRN (22:47)
[2022-07-09] MEDS: normal saline 1000ml 1,000 ML IV SCH (23:40)
[2022-07-10] VITALS (8 sets, daily range): BP systolic 75–117; BP diastolic 51–81
[2022-07-10] MEDS: LORazepam 2 mg/ml vial IV PRN (02:17)
[2022-07-10 07:03] LABS: BASOPHILS # (AUTO) 0.1 X10'3 (0-0.2); BASOPHILS % (AUTO) 0.6 % (0-1); EOSINOPHILS # (AUTO) 0.2 X10'3 (0-0.9); EOSINOPHILS % (AUTO) 2.6 % (0-6); HEMATOCRIT 39.1 % (42.0-52.0); HEMOGLOBIN 13.2 g/dl (14.0-17.9); LYMPHOCYTES # (AUTO) 1.5 X10'3 (1.1-4.8); MEAN CORPUSCULAR HEMOGLOBIN 29.5 PG (27.0-31.0); MEAN CORPUSCULAR HGB CONC 33.8 g/dL (33.0-36.5); MEAN CORPUSCULAR VOLUME 87.3 FL (78-98); MEAN PLATELET VOLUME 8.5 FL (7.4-10.4); MONOCYTES # (AUTO) 0.8 X10'3 (0-0.9); NEUTROPHILS # (AUTO) 6.7 X10'3 (1.8-7.7); NEUTROPHILS % (AUTO) 71.8 % (42-75); PLATELET COUNT 242 X10'3 (140-440); RED BLOOD COUNT 4.48 X10'6 (4.70-6.10); RED CELL DISTRIBUTION WIDTH 14.4 % (11.5-14.5); WHITE BLOOD COUNT 9.3 X10'3 (4.5-11.0)
[2022-07-10 07:19] LABS: ALANINE AMINOTRANSFERASE 20 U/L (12-78); ALBUMIN 3.1 G/DL (3.4-5.0); ALBUMIN/GLOBULIN RATIO 0.8 (1.1-1.5); ALKALINE PHOSPHATASE 79 IU/L (46-116); ANION GAP 7 (8-16); ASPARTATE AMINO TRANSFERASE 14 U/L (10-37); BILIRUBIN,TOTAL 0.9 MG/DL (0.1-1.0); BLOOD UREA NITROGEN 20 MG/DL (7-18); BUN/CREATININE RATIO 22.2 (5.4-32.0); CALCIUM 8.5 MG/DL (8.5-10.1); CHLORIDE 104 MMOL/L (99-107); GLUCOSE 98 MG/DL (70-104); MAGNESIUM 2.1 MG/DL (1.5-2.4); POTASSIUM 4.2 MMOL/L (3.5-5.1); SODIUM 138 MMOL/L (135-145); TOTAL PROTEIN 6.8 G/DL (6.4-8.2); eGFR 89 ML/MIN
[2022-07-10] MEDS: K and/or MAG REPLACEMENT MC SCH ×2 (08:00→18:22)
[2022-07-10] MEDS: sotalol 80mg tablet PO SCH ×2 (09:03→18:23)
[2022-07-10] MEDS: atorvastatin 10mg tablet PO SCH (09:03)
[2022-07-10] MEDS: clopidogrel 75mg tablet PO SCH (09:03)
[2022-07-10] MEDS: lisinopril 20mg tablet PO SCH (09:08)
[2022-07-10] MEDS: apixaban 5mg tablet PO SCH ×2 (09:08→19:11)
--- NOTE | 2022-07-10 10:44 | NUR ---
Tamar did not scan Addendum: 07/10/22 at 1048 by Sachi Canales RN [phone]: Paged Dr Francis--> Data 3028B. FYI HR 117-130s, pt appears asleep, asymptomatic while awake. AM meds given at 0908. Please advise. Sachi [phone].
--- NOTE | 2022-07-10 12:14 | NUR ---
HR 174 on ambulation
--- NOTE | 2022-07-10 13:38 | NUR ---
Data 3028B. Sudden onset CP. VSS. STAT EKG at bedside now. Please advise, Sachi [phone]
--- NOTE | 2022-07-10 13:53 | NUR ---
Paged Dr Francis: Data 5263C. EKG needs to be read. EMPLOYEE ADVISER called. Sachi [phone]
[2022-07-10] MEDS ORDERED: amiodarone 150mg/dext, iso-os 100 ML IV ONE (15:15)
[2022-07-10] MEDS: nitroGLYCERIN 0.4mg SUBLingual tab SL PRN (15:52)
--- NOTE | 2022-07-10 16:21 | NUR ---
Data 3028B. FYI: prior to bolus amio. BP 75/51, HR 134. Nitro SL x1 given. Giving bolus. Please advise if you want me to hold amiodarone gtts. Sachi [phone] Addendum: 07/10/22 at 1621 by Sachi Canales RN Edward BELTRAN
[2022-07-10] MEDS: amiodarone/D5 360MG/200ML BAG 200 ML IV PRN (16:23)
--- NOTE | 2022-07-10 16:31 | NUR ---
Notified Dr BELTRAN Data 3028B. Trop 138. Sachi [phone]
--- NOTE | 2022-07-10 18:57 | NUR ---
Amiodarone VS: 1603: BP 100/62, HR 155, RR 17 1614: BP 75/51, HR 98, RR 19 1616: BP 92/66, HR 133, RR 14 1631: BP 91/51, HR 124, RR 15 1636: BP 102/59, HR 93, RR 22 1704: 101/52, HR 102, RR 21 1734: 118/68, HR 124, RR 19 1804: 90/34, HR 126, RR 28 Pt asymptomatic
[2022-07-11] VITALS (8 sets, daily range): BP systolic 94–129; BP diastolic 57–76
[2022-07-11] MEDS: amiodarone/D5 360MG/200ML BAG 200 ML IV PRN (03:36)
[2022-07-11 05:55] LABS: BASOPHILS % (AUTO) 0.3 % (0-1); EOSINOPHILS # (AUTO) 0.2 X10'3 (0-0.9); EOSINOPHILS % (AUTO) 2.6 % (0-6); HEMATOCRIT 39.7 % (42.0-52.0); HEMOGLOBIN 13.3 g/dl (14.0-17.9); LYMPHOCYTES # (AUTO) 1.8 X10'3 (1.1-4.8); LYMPHOCYTES % (AUTO) 18.8 % (21-51); MEAN CORPUSCULAR HEMOGLOBIN 29.5 PG (27.0-31.0); MEAN CORPUSCULAR HGB CONC 33.6 g/dL (33.0-36.5); MEAN CORPUSCULAR VOLUME 87.9 FL (78-98); MEAN PLATELET VOLUME 8.3 FL (7.4-10.4); MONOCYTES # (AUTO) 0.7 X10'3 (0-0.9); MONOCYTES % (AUTO) 7.6 % (2-12); NEUTROPHILS # (AUTO) 6.6 X10'3 (1.8-7.7); NEUTROPHILS % (AUTO) 70.7 % (42-75); PLATELET COUNT 228 X10'3 (140-440); RED BLOOD COUNT 4.52 X10'6 (4.70-6.10); RED CELL DISTRIBUTION WIDTH 14.5 % (11.5-14.5); WHITE BLOOD COUNT 9.4 X10'3 (4.5-11.0)
[2022-07-11 06:07] LABS: ALANINE AMINOTRANSFERASE 15 U/L (12-78); ALBUMIN 3.2 G/DL (3.4-5.0); ALBUMIN/GLOBULIN RATIO 0.8 (1.1-1.5); ALKALINE PHOSPHATASE 86 IU/L (46-116); ANION GAP 5 (8-16); ASPARTATE AMINO TRANSFERASE 16 U/L (10-37); BILIRUBIN,TOTAL 0.5 MG/DL (0.1-1.0); BLOOD UREA NITROGEN 21 MG/DL (7-18); CALCIUM 8.1 MG/DL (8.5-10.1); CHLORIDE 102 MMOL/L (99-107); GLUCOSE 124 MG/DL (70-104); MAGNESIUM 1.9 MG/DL (1.5-2.4); POTASSIUM 4.2 MMOL/L (3.5-5.1); SODIUM 136 MMOL/L (135-145); TOTAL CARBON DIOXIDE 29.1 MMOL/L (24-32); eGFR 78 ML/MIN
[2022-07-11] MEDS: K and/or MAG REPLACEMENT MC SCH ×2 (08:00→20:00)
[2022-07-11] MEDS: sotalol 80mg tablet PO SCH (08:00)
--- NOTE | 2022-07-11 09:33 | NUR ---
paged Dr. Francis re: Pt threatening to leave AMA. refusing all AM meds.
[2022-07-11] MEDS: clopidogrel 75mg tablet PO SCH (11:35)
[2022-07-11] MEDS: atorvastatin 10mg tablet PO SCH (11:35)
[2022-07-11] MEDS: apixaban 5mg tablet PO SCH ×2 (11:35→20:55)
[2022-07-11] MEDS: sotalol HCl 40mg (1/2 tablet) PO SCH ×2 (11:35→20:55)
[2022-07-11] MEDS: lisinopril 20mg tablet PO SCH (11:35)
--- NOTE | 2022-07-11 13:57 | NUR ---
Pt experiencing CP and feeling strange. BP 129/64, Hr 100 to 140's. EKG ordered. On monitor. will give nitro.
[2022-07-11] MEDS: nitroGLYCERIN 0.4mg SUBLingual tab SL PRN (14:01)
[2022-07-11] MEDS ORDERED: ondansetron 4mg rapidly disintigrating tab PO PRN (17:00)
--- NOTE | 2022-07-11 18:00 | NUR ---
Patient in room PCU 3028. I have received report from Pato MASTERS and had the opportunity to ask questions and assume patient care.
[2022-07-11] MEDS: LORazepam 2 mg/ml vial IV PRN (22:01)
[2022-07-11] MEDS: normal saline 1000ml 1,000 ML IV SCH (23:04)
[2022-07-12 02:00] VITALS: BP 108/65
[2022-07-12 06:00] VITALS: BP 125/80
--- NOTE | 2022-07-12 06:49 | NUR ---
Problems reprioritized. Patient report given, questions answered & plan of care reviewed with Pato MASTERS.
[2022-07-12 07:39] LABS: BASOPHILS # (AUTO) 0.1 X10'3 (0-0.2); BASOPHILS % (AUTO) 0.9 % (0-1); EOSINOPHILS # (AUTO) 0.2 X10'3 (0-0.9); EOSINOPHILS % (AUTO) 2.2 % (0-6); HEMATOCRIT 40.5 % (42.0-52.0); HEMOGLOBIN 13.1 g/dl (14.0-17.9); LYMPHOCYTES # (AUTO) 1.7 X10'3 (1.1-4.8); LYMPHOCYTES % (AUTO) 15.8 % (21-51); MEAN CORPUSCULAR HEMOGLOBIN 28.5 PG (27.0-31.0); MEAN CORPUSCULAR HGB CONC 32.3 g/dL (33.0-36.5); MEAN CORPUSCULAR VOLUME 88.1 FL (78-98); MEAN PLATELET VOLUME 8.9 FL (7.4-10.4); MONOCYTES # (AUTO) 0.8 X10'3 (0-0.9); MONOCYTES % (AUTO) 7.8 % (2-12); NEUTROPHILS # (AUTO) 7.8 X10'3 (1.8-7.7); NEUTROPHILS % (AUTO) 73.3 % (42-75); PLATELET COUNT 252 X10'3 (140-440); RED CELL DISTRIBUTION WIDTH 14.3 % (11.5-14.5); WHITE BLOOD COUNT 10.6 X10'3 (4.5-11.0)
[2022-07-12 08:00] LABS: ALANINE AMINOTRANSFERASE 18 U/L (12-78); ALBUMIN 3.1 G/DL (3.4-5.0); ALBUMIN/GLOBULIN RATIO 0.8 (1.1-1.5); ALKALINE PHOSPHATASE 87 IU/L (46-116); ANION GAP 9 (8-16); ASPARTATE AMINO TRANSFERASE 19 U/L (10-37); BILIRUBIN,TOTAL 1.1 MG/DL (0.1-1.0); BLOOD UREA NITROGEN 19 MG/DL (7-18); BUN/CREATININE RATIO 20.4 (5.4-32.0); CALCIUM 8.4 MG/DL (8.5-10.1); CHLORIDE 103 MMOL/L (99-107); CREATININE 0.93 MG/DL (0.60-1.10); GLUCOSE 123 MG/DL (70-104); POTASSIUM 4.1 MMOL/L (3.5-5.1); SODIUM 138 MMOL/L (135-145); TOTAL CARBON DIOXIDE 26.3 MMOL/L (24-32); TOTAL PROTEIN 6.9 G/DL (6.4-8.2); eGFR 85 ML/MIN
[2022-07-12] MEDS: K and/or MAG REPLACEMENT MC SCH (08:00)
[2022-07-12] MEDS: lisinopril 20mg tablet PO SCH (08:39)
[2022-07-12] MEDS: sotalol HCl 40mg (1/2 tablet) PO SCH (08:39)
[2022-07-12] MEDS: apixaban 5mg tablet PO SCH (08:39)
[2022-07-12] MEDS: clopidogrel 75mg tablet PO SCH (08:39)
[2022-07-12] MEDS: atorvastatin 10mg tablet PO SCH (08:39)
--- NOTE | 2022-07-12 09:40 | NUR ---
Initial: Pt admit for A.fib with RVR. Currently on a heart healthy diet and overall eating well, documented with mostly 75-100% PO intake meeting estimated nutrient needs. LBM 07/10, with PRN bowel care available. No nutrition intervention implemented at this time. Will continue to follow. Recommendations: 1) Continue heart healthy diet 2) Bowel care PRN 3) Scaled weight this admit; subsequent weekly scaled weights Addendum: 07/12/22 at [address] Amended: Links added.
[2022-07-12 10:25] VITALS: BP 102/65
--- NOTE | 2022-07-12 12:46 | NUR ---
paged Dr. Francis re: pt took himself off of tele. really wants to leave lol i know you're working on it i just wanted to give you a heads up. doing what i can to try to get him to be patient.
[2022-07-12] MEDS ORDERED: SOTA80TA73 PO (12:48)
[2022-07-12] MEDS ORDERED: APIX5TAB3 PO (12:48)
--- NOTE | 2022-07-12 13:00 | NUR ---
pt discharged in stable condition. pt chose to walk down to lobby. tele and IV discontinued. discharge instructions, education, and prescriptions reviewed with pt. all questions/concerns addressed. pt given coupon for maynor.
== END 2022-07-12 13:25 | disposition home or self-care (01) | DRG 201 ==
LOC: ER 21:41 → ED HOLD 23:42 → PCU 3S 07-08 06:45
PROVIDERS: ADMIT Internal Medicine; ATTEND Internal Medicine
DX: I48.0 Paroxysmal atrial fibrillation (principal); E78.00 Pure hypercholesterolemia, unspecified; I10 Essential (primary) hypertension; G89.29 Other chronic pain; I25.10 Atherosclerotic heart disease of native coronary artery without angina pectoris; I87.8 Other specified disorders of veins; I49.3 Ventricular premature depolarization; I25.2 Old myocardial infarction; F43.10 Post-traumatic stress disorder, unspecified; Z87.820 Personal history of traumatic brain injury; F17.200 Nicotine dependence, unspecified, uncomplicated; Z88.1 Allergy status to other antibiotic agents; Z95.5 Presence of coronary angioplasty implant and graft
CPT/HCPCS: 36415; 80053; 83735; 83880; 84484; 85007; 85025; 85379; 87081; 93005; 99285; A4615; G0378; J0282; J1644; J2060; J2405; J3490; J7030

== ENCOUNTER 2022-09-16 12:58 | Inpatient (IN) | payer MEDICAID ==
[~2022-09-16] VITALS: Ht 332.7 cm; Wt 127.3 kg
[~2022-09-16 12:58] MED LIST changes: +APIX5TAB3 PO; -ASPI81TA52 PO; -CLIN150C2 PO; -DILT120C94 PO; +SOTA80TA73 PO
[2022-09-16 13:21] LABS: BASOPHILS # (AUTO) 0.1 X10'3 (0-0.2); BASOPHILS % (AUTO) 1.4 % (0-1); EOSINOPHILS # (AUTO) 0.2 X10'3 (0-0.9); HEMATOCRIT 37.3 % (42.0-52.0); HEMOGLOBIN 12.8 g/dl (14.0-17.9); LYMPHOCYTES # (AUTO) 1.4 X10'3 (1.1-4.8); LYMPHOCYTES % (AUTO) 17.7 % (21-51); MEAN CORPUSCULAR HEMOGLOBIN 30.3 PG (27.0-31.0); MEAN CORPUSCULAR HGB CONC 34.2 g/dL (33.0-36.5); MEAN CORPUSCULAR VOLUME 88.6 FL (78-98); MONOCYTES # (AUTO) 0.6 X10'3 (0-0.9); MONOCYTES % (AUTO) 7.4 % (2-12); NEUTROPHILS # (AUTO) 5.7 X10'3 (1.8-7.7); NEUTROPHILS % (AUTO) 70.5 % (42-75); PLATELET COUNT 235 X10'3 (140-440); RED BLOOD COUNT 4.21 X10'6 (4.70-6.10); RED CELL DISTRIBUTION WIDTH 16.1 % (11.5-14.5); WHITE BLOOD COUNT 8.1 X10'3 (4.5-11.0)
[2022-09-16 13:36] LABS: ALANINE AMINOTRANSFERASE 17 U/L (12-78); ALBUMIN 3.7 G/DL (3.4-5.0); ALKALINE PHOSPHATASE 81 IU/L (46-116); ANION GAP 6 (8-16); ASPARTATE AMINO TRANSFERASE 17 U/L (10-37); BILIRUBIN,TOTAL 0.8 MG/DL (0.1-1.0); BLOOD UREA NITROGEN 21 MG/DL (7-18); BUN/CREATININE RATIO 17.2 (10.0-20.0); CALCIUM 8.3 MG/DL (8.5-10.1); CHLORIDE 107 MMOL/L (99-107); CREATININE 1.22 MG/DL (0.60-1.10); GLUCOSE 73 MG/DL (70-104); POTASSIUM 4.1 MMOL/L (3.5-5.1); SODIUM 141 MMOL/L (135-145); TOTAL PROTEIN 7.5 G/DL (6.4-8.2); eGFR 62 ML/MIN
[2022-09-16 13:45] LABS: MAGNESIUM 2.1 MG/DL (1.5-2.4)
--- NOTE | 2022-09-16 18:41 | NUR ---
Patient to CT
[2022-09-16] MEDS ORDERED: proCHLORperazine 10 MG/2 ml inj IV ONE (19:00)
[2022-09-16 19:27] LABS: APTT 29 SECONDS (22-32)
--- NOTE | 2022-09-16 20:11 | NUR ---
Patient resting comfortably on gurney, compazine just given.
--- NOTE | 2022-09-16 20:22 | NUR ---
Patient up to the bathroom w/o problem
[2022-09-16] MEDS ORDERED: ISOS30TA84 PO (20:29)
[2022-09-16] MEDS ORDERED: ASPI-1397 PO (20:29)
[2022-09-16] MEDS ORDERED: AMIO200T61 PO (20:29)
[2022-09-16] MEDS ORDERED: CARV12.549 PO (20:29)
[2022-09-16] MEDS ORDERED: LISI10TA27 PO (20:29)
[2022-09-16] MEDS ORDERED: DAPA10TA PO (20:29)
--- NOTE | 2022-09-16 21:56 | NUR ---
Patient sleeping comfortably.
[2022-09-16] MEDS ORDERED: magnesium 4gm in 100ml NS 100 ML IV PRN (23:20)
[2022-09-16] MEDS ORDERED: magnesium hydroxide 30ml (MOM) UD suspension PO PRN (23:20)
[2022-09-16] MEDS ORDERED: ondansetron/PF 4mg/2ml inj IV PRN (23:20)
[2022-09-16] MEDS ORDERED: mag hydrox/Alum hydrox/simeth 30ml oral suspension PO PRN (23:20)
[2022-09-16] MEDS ORDERED: acetaminophen 325mg tablet PO PRN (23:20)
[2022-09-16] MEDS ORDERED: potassium Cl 40MEQ/1/2NS 520ml 520 ML IV PRN (23:20)
[2022-09-16] MEDS ORDERED: potassium Cl 20 mEq SR tablet PO PRN ×2 (23:20)
[2022-09-16] MEDS ORDERED: magnesium Cl slow-release 64mg tablet PO PRN (23:20)
[2022-09-16] MEDS ORDERED: iohexol 350MG/ML 100ml bottle IV ONE (23:30)
--- NOTE | 2022-09-16 23:43 | NUR ---
Patient up to bathroom w/o problem and transfered to hospital bed.
--- NOTE | 2022-09-16 23:53 | NUR ---
Patient to CTA
--- NOTE | 2022-09-17 00:50 | NUR ---
Radiologist cld and CTA is negative.
[2022-09-17 02:00] VITALS: BP 138/78
--- NOTE | 2022-09-17 06:26 | NUR ---
Problems reprioritized. Patient report given, questions answered & plan of care reviewed with Katie MASTERS.
[2022-09-17 07:00] VITALS: BP 133/69
[2022-09-17] MEDS ORDERED: atorvastatin 10mg tablet PO SCH (08:00)
[2022-09-17] MEDS ORDERED: apixaban 5mg tablet PO SCH (08:00)
[2022-09-17] MEDS ORDERED: carVEDilol 12.5mg tablet PO SCH (08:00)
[2022-09-17] MEDS ORDERED: K and/or MAG REPLACEMENT MC SCH (08:00)
[2022-09-17] MEDS ORDERED: docusate sod 100mg capsule PO SCH (08:00)
[2022-09-17] MEDS ORDERED: lisinopril 10 MG tablet PO SCH (08:00)
[2022-09-17] MEDS ORDERED: DAPAGLIFLOZIN 10MG TABLET PO SCH (08:00)
[2022-09-17] MEDS ORDERED: isosorbide mononitrate 30mg tab.SR.24H PO SCH (08:00)
[2022-09-17] MEDS ORDERED: aspirin 81mg, enteric-coated 1 TAB TABLET.DR PO SCH (08:00)
[2022-09-17] MEDS ORDERED: amiodarone 200mg tablet PO SCH (08:00)
[2022-09-17 08:59] VITALS: BP_SYST 133
--- NOTE | 2022-09-17 09:07 | NUR ---
Noted pt with a low BMI of 11.5 using scaled wt of 127.27 kg. Ht has been changed to 131" from 71". Actual BMI is 39. Addendum: 09/17/22 at [address] Amended: Links added.
--- NOTE | 2022-09-17 12:14 | NUR ---
Pt stable for discharge per Dr. Posey and Dr. Sherwood. All discharge instructions reviewed with patient and all questions answered, pt verbalized understanding. No new medications ordered. PIV discontinued, cannula intact. Tele discontinued. All belongings collected and sent with patient. Patient walked to lobby and was picked up by friend.
== END 2022-09-17 11:54 | disposition home or self-care (01) | DRG 58 ==
LOC: ER 12:58 → ED HOLD 23:25 → OBSVTOIN 23:25 → PCU 3S 09-17 01:48
PROVIDERS: ADMIT Internal Medicine; ATTEND Internal Medicine
PROC: B3251ZZ Computerized Tomography (CT Scan) of Bilateral Common Carotid Arteries using Low Osmolar Contrast (ICD-10-PCS; principal; 2022-09-16)
PROC: B32G1ZZ Computerized Tomography (CT Scan) of Bilateral Vertebral Arteries using Low Osmolar Contrast (ICD-10-PCS; 2022-09-16)
PROC: B32R1ZZ Computerized Tomography (CT Scan) of Intracranial Arteries using Low Osmolar Contrast (ICD-10-PCS; 2022-09-16)
PROC: B3281ZZ Computerized Tomography (CT Scan) of Bilateral Internal Carotid Arteries using Low Osmolar Contrast (ICD-10-PCS; 2022-09-16)
DX: R20.2 Paresthesia of skin (principal); E66.01 Morbid (severe) obesity due to excess calories; I48.0 Paroxysmal atrial fibrillation; E78.00 Pure hypercholesterolemia, unspecified; F15.10 Other stimulant abuse, uncomplicated; F43.10 Post-traumatic stress disorder, unspecified; G89.29 Other chronic pain; M54.9 Dorsalgia, unspecified; N28.9 Disorder of kidney and ureter, unspecified; I10 Essential (primary) hypertension; I25.10 Atherosclerotic heart disease of native coronary artery without angina pectoris; I25.2 Old myocardial infarction; Z79.01 Long term (current) use of anticoagulants; Z88.1 Allergy status to other antibiotic agents; Z88.5 Allergy status to narcotic agent; Z91.199 Patient's noncompliance with other medical treatment and regimen due to unspecified reason; Z95.0 Presence of cardiac pacemaker; Z98.61 Coronary angioplasty status; Z79.899 Other long term (current) drug therapy; Z68.41 Body mass index [BMI] 40.0-44.9, adult
CPT/HCPCS: 36415; 70450; 70496; 70498; 71045; 80053; 83735; 83880; 84484; 85025; 85610; 85730; 87081; 93005; 96374; 99285; G0378; J0780; J3490; Q9967

== ENCOUNTER 2023-03-03 11:46 | Inpatient (IN) | payer MEDICAID ==
[~2023-03-03] VITALS: Ht 180.3 cm; Wt 148.9 kg
[~2023-03-03 11:46] MED LIST changes: +AMI200T PO; +ASPI-1397 PO; +CARV12.549 PO; -CLOP75TA34 PO; +DAPA10TA PO; +ISOS30TA84 PO; +LISI10TA27 PO; -LISI40TA13 PO; -NITR0.4T51 PO; -SOTA80TA73 PO
[2023-03-03] MEDS ORDERED: aspirin 81mg tab.chew PO ONE (12:00)
[2023-03-03 12:13] LABS: BASOPHILS # (AUTO) 0.1 X10'3 (0-0.2); BASOPHILS % (AUTO) 1.3 % (0-1); EOSINOPHILS # (AUTO) 0.3 X10'3 (0-0.9); EOSINOPHILS % (AUTO) 3.5 % (0-6); HEMATOCRIT 41.9 % (42.0-52.0); HEMOGLOBIN 14.1 g/dl (14.0-17.9); LYMPHOCYTES # (AUTO) 1.2 X10'3 (1.1-4.8); LYMPHOCYTES % (AUTO) 15.1 % (21-51); MEAN CORPUSCULAR HEMOGLOBIN 30.5 PG (27.0-31.0); MEAN CORPUSCULAR HGB CONC 33.6 g/dL (33.0-36.5); MEAN CORPUSCULAR VOLUME 90.8 FL (78-98); MONOCYTES # (AUTO) 0.8 X10'3 (0-0.9); NEUTROPHILS # (AUTO) 5.6 X10'3 (1.8-7.7); NEUTROPHILS % (AUTO) 70.1 % (42-75); PLATELET COUNT 216 X10'3 (140-440); RED BLOOD COUNT 4.62 X10'6 (4.70-6.10); RED CELL DISTRIBUTION WIDTH 15.3 % (11.5-14.5)
[2023-03-03 12:34] LABS: D-DIMER 0.28 MG/L FEU (0-0.50)
[2023-03-03 12:41] LABS: ALANINE AMINOTRANSFERASE 26 U/L (12-78); ALBUMIN 3.6 G/DL (3.4-5.0); ALBUMIN/GLOBULIN RATIO 0.9 (1.1-1.5); ALKALINE PHOSPHATASE 69 IU/L (46-116); ANION GAP 9 (8-16); ASPARTATE AMINO TRANSFERASE 16 U/L (10-37); BILIRUBIN,TOTAL 1.1 MG/DL (0.1-1.0); BLOOD UREA NITROGEN 17 MG/DL (7-18); BUN/CREATININE RATIO 16.2 (10.0-20.0); CALCIUM 8.9 MG/DL (8.5-10.1); CHLORIDE 105 MMOL/L (99-107); CREATININE 1.05 MG/DL (0.60-1.10); GLUCOSE 111 MG/DL (70-104); POTASSIUM 4.3 MMOL/L (3.5-5.1); SODIUM 140 MMOL/L (135-145); TOTAL CARBON DIOXIDE 26.4 MMOL/L (24-32); TOTAL PROTEIN 7.4 G/DL (6.4-8.2); eCRCL 88 ML/MIN; eGFR 74 ML/MIN
[2023-03-03 12:46] LABS: PRO BRAIN NATRIURETIC PEPTIDE 45 PG/ML (0-125)
[2023-03-03] MEDS ORDERED: iohexol 350MG/ML 100ml bottle IV ONE (13:04)
--- NOTE | 2023-03-03 13:28 | NUR ---
pt returned from ct tolerated procedure well
[2023-03-03] MEDS ORDERED: HYDROmorphone inj. 0.5 MG/0.5 ML DISP.SYRIN IV ONE ×2 (13:50→16:45)
[2023-03-03 14:05] LABS: INR 1.8 INR; PROTHROMBIN TIME 18.3 SECONDS (9.0-12.0)
[2023-03-03] MEDS ORDERED: WARF-55 PO (14:09)
[2023-03-03] MEDS ORDERED: AMLO5TAB16 PO (15:30)
[2023-03-03] MEDS ORDERED: CARV6.2553 PO (15:30)
[2023-03-03] MEDS ORDERED: NITR0.4T51 SL (15:30)
[2023-03-03] MEDS ORDERED: CYCL-1 PO (15:30)
[2023-03-03] MEDS ORDERED: SACU1TAB4 PO (15:30)
[2023-03-03] MEDS ORDERED: ALBU90AE IH (15:30)
[2023-03-03] MEDS ORDERED: magnesium hydroxide 30ml (MOM) UD suspension PO PRN (16:00)
[2023-03-03] MEDS ORDERED: potassium Cl 40MEQ/1/2NS 520ml 520 ML IV PRN (16:00)
[2023-03-03] MEDS ORDERED: magnesium Cl slow-release 64mg tablet PO PRN (16:00)
[2023-03-03] MEDS ORDERED: magnesium 4gm in 100ml NS 100 ML IV PRN (16:00)
[2023-03-03] MEDS ORDERED: potassium Cl 20 mEq SR tablet PO PRN ×2 (16:00)
[2023-03-03] MEDS ORDERED: acetaminophen 325mg tablet PO PRN (16:00)
[2023-03-03] MEDS ORDERED: ondansetron/PF 4mg/2ml inj IV PRN (16:00)
[2023-03-03] MEDS ORDERED: morphine 2 MG/ML inj. syringe IV PRN ×2 (16:00)
[2023-03-03] MEDS ORDERED: mag hydrox/Alum hydrox/simeth 30ml oral suspension PO PRN (16:00)
[2023-03-03] MEDS ORDERED: magnesium 2GM in 50ml NS 50 ML IV PRN (16:00)
[2023-03-03] MEDS ORDERED: HYDROcodone/acetaminophen 5mg/325mg tablet PO PRN (16:00)
[2023-03-03] MEDS ORDERED: albuterol 2.5 MG/3 ML nebule NEB PRN (16:10)
[2023-03-03] MEDS ORDERED: nitroGLYCERIN 0.4mg SUBLingual tab SL PRN ×2 (16:10→17:35)
[2023-03-03] MEDS ORDERED: amLODIPine 5mg tablet PO ONE (16:20)
[2023-03-03 16:22] VITALS: PULSE 60; RESP 12; O2SAT 97
[2023-03-03 16:50] LABS: HEMOGLOBIN A1C 5.7 % (4.5-6.2)
[2023-03-03 16:59] LABS: CHOL/HDL RATIO 4.8 (0.00-4.99); CHOLESTEROL 148 MG/DL (0-200); FREE T4 (FREE THYROXINE) 1.22 NG/DL (0.73-1.40); HDL CHOLESTEROL 31 MG/DL (35-60); LDL CHOLESTEROL 87 MG/DL (50-100); THYROID STIMULATING HORMONE 3.21 ulU/ml (0.34-4.50); TRIGLYCERIDES 220 MG/DL (20-135)
[2023-03-03 16:59] LABS: URINE AMPHETAMINE SCREEN NEGATIVE (Neg); URINE BARBITUATE SCREEN NEGATIVE (Neg); URINE BENZODIAZEPINES SCREEN NEGATIVE (Neg); URINE CANNABINOID SCREEN NEGATIVE (Neg); URINE COCAINE SCREEN NEGATIVE (Neg); URINE METHADONE SCREEN NEGATIVE (Neg); URINE OPIATE SCREEN NEGATIVE (Neg); URINE PHENCYCLIDINE SCREEN NEGATIVE (Neg)
[2023-03-03] MEDS ORDERED: metoprolol tartrate 1mg/ml inj IV PRN (17:35)
[2023-03-03] MEDS ORDERED: aminophylline 250mg/10ml inj. IV PRN (17:35)
[2023-03-03] MEDS ORDERED: regadenoson 0.4mg/5ml syringe IV PRN (17:35)
[2023-03-03 18:39] LABS: D-DIMER 0.23 MG/L FEU (0-0.50)
[2023-03-03 20:00] VITALS: BP 151/68; PULSE 61; RESP 16; RESP 18; TEMP 97.5; O2SAT 94
--- NOTE | 2023-03-03 20:00 | NUR ---
RECEIVED PT FROM ER VIA WC FOLLOWING VERBAL REPORT FROM MICHELLE. ASSUMED CARE
[2023-03-03] MEDS: K and/or MAG REPLACEMENT MC SCH (20:10)
[2023-03-03] MEDS: carvedilol 6.25mg tablet PO SCH (20:19)
[2023-03-03] MEDS: docusate sod 100mg capsule PO SCH (20:19)
[2023-03-03] MEDS: HYDROcodone/acetaminophen 10/325mg tab PO PRN (20:19)
[2023-03-03] MEDS: cyclobenzaprine 10mg tablet PO SCH (22:00)
[2023-03-03] MEDS: sacubitril/valsartan 49mg-51mg tablet PO SCH (22:07)
[2023-03-03 23:00] VITALS: BP 133/65; PULSE 60; RESP 18; TEMP 97.4; O2SAT 91
[2023-03-03 23:02] VITALS: PULSE 53; RESP 15; O2SAT 91
[2023-03-04] VITALS (18 sets, daily range): BP systolic 108–151; BP diastolic 56–85; PULSE 60–70; RESP 14–18; TEMP 97.5–98; O2SAT 91–99
[2023-03-04] MEDS: HYDROcodone/acetaminophen 10/325mg tab PO PRN ×3 (02:24→14:42)
--- NOTE | 2023-03-04 06:20 | NUR ---
Patient in room PCU 3016. I have received report from Nohelia MASTERS and had the opportunity to ask questions and assume patient care.
--- NOTE | 2023-03-04 06:33 | NUR ---
Problems reprioritized. Patient report given, questions answered & plan of care reviewed with DONALDO.
[2023-03-04 06:56] LABS: BASOPHILS # (AUTO) 0.1 X10'3 (0-0.2); BASOPHILS % (AUTO) 0.7 % (0-1); EOSINOPHILS # (AUTO) 0.4 X10'3 (0-0.9); EOSINOPHILS % (AUTO) 4.8 % (0-6); HEMATOCRIT 39.9 % (42.0-52.0); HEMOGLOBIN 13.4 g/dl (14.0-17.9); LYMPHOCYTES # (AUTO) 1.5 X10'3 (1.1-4.8); LYMPHOCYTES % (AUTO) 20.4 % (21-51); MEAN CORPUSCULAR HEMOGLOBIN 30.7 PG (27.0-31.0); MEAN CORPUSCULAR HGB CONC 33.6 g/dL (33.0-36.5); MEAN CORPUSCULAR VOLUME 91.4 FL (78-98); MEAN PLATELET VOLUME 8.3 FL (7.4-10.4); MONOCYTES # (AUTO) 0.8 X10'3 (0-0.9); MONOCYTES % (AUTO) 11.3 % (2-12); NEUTROPHILS # (AUTO) 4.7 X10'3 (1.8-7.7); NEUTROPHILS % (AUTO) 62.8 % (42-75); PLATELET COUNT 200 X10'3 (140-440); RED BLOOD COUNT 4.37 X10'6 (4.70-6.10); RED CELL DISTRIBUTION WIDTH 14.9 % (11.5-14.5); WHITE BLOOD COUNT 7.4 X10'3 (4.5-11.0)
[2023-03-04 07:02] LABS: APTT 37 SECONDS (22-32); INR 1.6 INR; PROTHROMBIN TIME 16.4 SECONDS (9.0-12.0)
[2023-03-04 07:30] LABS: ALANINE AMINOTRANSFERASE 25 U/L (12-78); ALBUMIN 3.5 G/DL (3.4-5.0); ALKALINE PHOSPHATASE 61 IU/L (46-116); ANION GAP 10 (8-16); ASPARTATE AMINO TRANSFERASE 17 U/L (10-37); BILIRUBIN,TOTAL 1.2 MG/DL (0.1-1.0); BLOOD UREA NITROGEN 20 MG/DL (7-18); BUN/CREATININE RATIO 17.9 (10.0-20.0); CALCIUM 8.9 MG/DL (8.5-10.1); CHLORIDE 104 MMOL/L (99-107); CREATININE 1.12 MG/DL (0.60-1.10); GLUCOSE 110 MG/DL (70-104); SODIUM 139 MMOL/L (135-145); TOTAL CARBON DIOXIDE 24.9 MMOL/L (24-32); TOTAL PROTEIN 6.9 G/DL (6.4-8.2); eCRCL 82 ML/MIN; eGFR 69 ML/MIN
[2023-03-04] MEDS: cyclobenzaprine 10mg tablet PO SCH ×2 (07:58→13:41)
[2023-03-04] MEDS: docusate sod 100mg capsule PO SCH (07:59)
[2023-03-04] MEDS: sacubitril/valsartan 49mg-51mg tablet PO SCH (07:59)
[2023-03-04] MEDS ORDERED: amLODIPine 5mg tablet PO SCH (08:00)
[2023-03-04] MEDS ORDERED: atorvastatin 10mg tablet PO SCH (08:00)
[2023-03-04] MEDS: K and/or MAG REPLACEMENT MC SCH (08:00)
[2023-03-04] MEDS ORDERED: amiodarone 200mg tablet PO SCH (08:00)
[2023-03-04] MEDS ORDERED: DAPAGLIFLOZIN 10MG TABLET PO SCH (08:00)
[2023-03-04] MEDS: carvedilol 6.25mg tablet PO SCH (08:00)
[2023-03-04 08:59] LABS: PLATELET ESTIMATE NORMAL; TOTAL CELLS COUNTED 100
[2023-03-04] MEDS ORDERED: pneumococcal 23-VAL P-sac vacc 25 mcg/0.5ml vial IMVAC ONE (10:00)
--- NOTE | 2023-03-04 10:15 | NUR ---
Patient left unit to stress lab for Marysol scan via wheel chair.
--- NOTE | 2023-03-04 13:24 | NUR ---
Attempted to call Dr Mayers to notify him that the patient's josé miguel scan is done
--- NOTE | 2023-03-04 13:53 | NUR ---
Message: [id number] Data Patient's Marysol is back. Tried to call [facility] unable to contact them. Thank you Miriam TAYLOR [phone] Custom Responses: promotional table spacer Transaction number: [id number]
--- NOTE | 2023-03-04 15:25 | NUR ---
Patient discharged home with all belongings and discharge instructions. IV removed and tele monitor removed and returned to [employer]. Patient ambulated out to the vending machine then to lobby to wait for his ride.
== END 2023-03-04 15:25 | disposition home or self-care (01) | DRG 198 ==
LOC: ER 11:46 → ED HOLD 16:05 → PCU 3S 20:30
PROVIDERS: ADMIT Family Medicine; ATTEND Family Medicine
PROC: B32T1ZZ Computerized Tomography (CT Scan) of Left Pulmonary Artery using Low Osmolar Contrast (ICD-10-PCS; principal; 2023-03-03)
PROC: B3201ZZ Computerized Tomography (CT Scan) of Thoracic Aorta using Low Osmolar Contrast (ICD-10-PCS; 2023-03-03)
PROC: B32S1ZZ Computerized Tomography (CT Scan) of Right Pulmonary Artery using Low Osmolar Contrast (ICD-10-PCS; 2023-03-03)
PROC: 4A02XM4 Measurement of Cardiac Total Activity, External Approach (ICD-10-PCS; 2023-03-04)
PROC: 3E033HZ Introduction of Radioactive Substance into Peripheral Vein, Percutaneous Approach (ICD-10-PCS; 2023-03-04)
DX: I25.110 Atherosclerotic heart disease of native coronary artery with unstable angina pectoris (principal); I50.30 Unspecified diastolic (congestive) heart failure; I11.0 Hypertensive heart disease with heart failure; Z86.74 Personal history of sudden cardiac arrest; Z79.01 Long term (current) use of anticoagulants; E66.01 Morbid (severe) obesity due to excess calories; E78.00 Pure hypercholesterolemia, unspecified; G44.89 Other headache syndrome; I87.8 Other specified disorders of veins; E78.5 Hyperlipidemia, unspecified; G89.29 Other chronic pain; N28.1 Cyst of kidney, acquired; I48.0 Paroxysmal atrial fibrillation; I25.2 Old myocardial infarction; Z87.891 Personal history of nicotine dependence; Z86.711 Personal history of pulmonary embolism; Z88.1 Allergy status to other antibiotic agents; Z88.5 Allergy status to narcotic agent; Z95.5 Presence of coronary angioplasty implant and graft; Z79.899 Other long term (current) drug therapy; Z95.810 Presence of automatic (implantable) cardiac defibrillator; Z68.41 Body mass index [BMI] 40.0-44.9, adult
CPT/HCPCS: 36415; 70450; 71045; 71275; 78452; 80053; 80061; 80305; 83036; 83735; 83835; 83880; 84100; 84439; 84443; 84484; 85007; 85025; 85379; 85610; 85730; 87081; 93005; 93017; 93306; 93925; 93970; 94760; 99285; A4615; A9500; G0378; J0280; J1170; J2785; J3490; J7030; J7120; Q9967

== ENCOUNTER 2023-05-17 18:07 | Emergency (ER) | payer MEDICAID ==
[~2023-05-17] VITALS: Ht 180.3 cm; Wt 149.0 kg
[~2023-05-17 18:07] MED LIST changes: +ALBU90AE IH; +AMLO5TAB16 PO; -APIX5TAB3 PO; -ASPI-1397 PO; -CARV12.549 PO; +CARV6.2553 PO; +CYCL-1 PO; -ISOS30TA84 PO; -LISI10TA27 PO; +NITR0.4T51 SL; +SACU1TAB4 PO; +WARF-55 PO; +pantoprazole 40mg Tablet.DR PO ONE
[2023-05-17 18:37] LABS: HEMATOCRIT 42.3 % (42.0-52.0)
[2023-05-17 18:39] LABS: BASOPHILS # (AUTO) 0.1 X10'3 (0-0.2); BASOPHILS % (AUTO) 1.2 % (0-1); EOSINOPHILS # (AUTO) 0.2 X10'3 (0-0.9); EOSINOPHILS % (AUTO) 2.1 % (0-6); HEMOGLOBIN 14.2 g/dl (14.0-17.9); LYMPHOCYTES # (AUTO) 1.4 X10'3 (1.1-4.8); LYMPHOCYTES % (AUTO) 19.6 % (21-51); MEAN CORPUSCULAR HEMOGLOBIN 30.6 PG (27.0-31.0); MEAN CORPUSCULAR HGB CONC 33.6 g/dL (33.0-36.5); MEAN CORPUSCULAR VOLUME 90.9 FL (78-98); MEAN PLATELET VOLUME 7.9 FL (7.4-10.4); MONOCYTES # (AUTO) 0.7 X10'3 (0-0.9); NEUTROPHILS # (AUTO) 4.9 X10'3 (1.8-7.7); NEUTROPHILS % (AUTO) 67.1 % (42-75); PLATELET COUNT 235 X10'3 (140-440); RED BLOOD COUNT 4.65 X10'6 (4.70-6.10); RED CELL DISTRIBUTION WIDTH 15.4 % (11.5-14.5); WHITE BLOOD COUNT 7.3 X10'3 (4.5-11.0)
[2023-05-17 18:49] LABS: ALANINE AMINOTRANSFERASE 29 U/L (12-78); ALBUMIN 3.6 G/DL (3.4-5.0); ALBUMIN/GLOBULIN RATIO 0.9 (1.1-1.5); ALKALINE PHOSPHATASE 75 IU/L (46-116); ANION GAP 7 (8-16); ASPARTATE AMINO TRANSFERASE 14 U/L (10-37); BILIRUBIN,TOTAL 0.7 MG/DL (0.1-1.0); BLOOD UREA NITROGEN 11 MG/DL (7-18); BUN/CREATININE RATIO 10.2 (10.0-20.0); CALCIUM 8.3 MG/DL (8.5-10.1); CHLORIDE 104 MMOL/L (99-107); CREATININE 1.08 MG/DL (0.60-1.10); GLUCOSE 89 MG/DL (70-104); POTASSIUM 3.7 MMOL/L (3.5-5.1); SODIUM 139 MMOL/L (135-145); TOTAL CARBON DIOXIDE 28.5 MMOL/L (24-32); TOTAL PROTEIN 7.6 G/DL (6.4-8.2); eGFR 72 ML/MIN
[2023-05-17 18:56] LABS: PRO BRAIN NATRIURETIC PEPTIDE 55 PG/ML (0-125)
[2023-05-17 18:57] VITALS: BP 195/99; PULSE 62; RESP 20; TEMP 98.6; O2SAT 99
[2023-05-17] MEDS ORDERED: mag hydrox/Alum hydrox/simeth 30ml oral suspension PO ONE (19:30)
[2023-05-17] MEDS ORDERED: LIDOcaine Viscous 15ml cup MM ONE (19:30)
[2023-05-17] MEDS ORDERED: pantoprazole 40mg Tablet.DR PO ONE (19:31)
== END 2023-05-17 20:28 | disposition left against medical advice (07) ==
LOC: ER 18:08
DX: R07.9 Chest pain, unspecified (principal)
CPT/HCPCS: 71045; 80053; 83880; 84484; 85025; 93005; 99285

== ENCOUNTER 2023-10-23 13:10 | Emergency (ER) | payer MEDICAID ==
[~2023-10-23] VITALS: Ht 180.3 cm; Wt 145.4 kg
[~2023-10-23 13:10] MED LIST changes: -pantoprazole 40mg Tablet.DR PO ONE
[2023-10-23 14:36] LABS: BASOPHILS % (AUTO) 0.6 % (0-1); EOSINOPHILS # (AUTO) 0.2 X10'3 (0-0.9); EOSINOPHILS % (AUTO) 2.5 % (0-6); HEMATOCRIT 44.2 % (42.0-52.0); HEMOGLOBIN 14.7 g/dl (14.0-17.9); LYMPHOCYTES # (AUTO) 1.3 X10'3 (1.1-4.8); LYMPHOCYTES % (AUTO) 17.7 % (21-51); MEAN CORPUSCULAR HEMOGLOBIN 29.5 PG (27.0-31.0); MEAN CORPUSCULAR HGB CONC 33.3 g/dL (33.0-36.5); MEAN CORPUSCULAR VOLUME 88.7 FL (78-98); MEAN PLATELET VOLUME 8.4 FL (7.4-10.4); MONOCYTES # (AUTO) 0.6 X10'3 (0-0.9); MONOCYTES % (AUTO) 7.9 % (2-12); NEUTROPHILS # (AUTO) 5.2 X10'3 (1.8-7.7); NEUTROPHILS % (AUTO) 71.3 % (42-75); PLATELET COUNT 227 X10'3 (140-440); RED BLOOD COUNT 4.98 X10'6 (4.70-6.10); RED CELL DISTRIBUTION WIDTH 15.2 % (11.5-14.5); WHITE BLOOD COUNT 7.3 X10'3 (4.5-11.0)
[2023-10-23 14:54] LABS: ALBUMIN 3.5 G/DL (3.4-5.0); ANION GAP 6 (8-16); BLOOD UREA NITROGEN 13 MG/DL (7-18); BUN/CREATININE RATIO 13.4 (10.0-20.0); CALCIUM 8.7 MG/DL (8.5-10.1); CHLORIDE 105 MMOL/L (99-107); CREATININE 0.97 MG/DL (0.60-1.10); GLUCOSE 97 MG/DL (70-104); POTASSIUM 4.4 MMOL/L (3.5-5.1); PRO BRAIN NATRIURETIC PEPTIDE 47 PG/ML (0-125); SODIUM 136 MMOL/L (135-145); TOTAL CARBON DIOXIDE 25.3 MMOL/L (24-32); eCRCL 94 ML/MIN; eGFR 81 ML/MIN
[2023-10-23] MEDS: albuterol 2.5 MG/3 ML nebule NEB ONE (15:08)
[2023-10-23 15:14] VITALS: PULSE 60; RESP 16; O2SAT 96
[2023-10-23 15:16] LABS: LARGE PLATELETS FEW; PLATELET ESTIMATE NORMAL
[2023-10-23 15:17] VITALS: PULSE 60; RESP 16
[2023-10-23 15:55] VITALS: BP 117/77; RESP 20
[2023-10-23] MEDS ORDERED: CARV-50 PO (16:06)
[2023-10-23] MEDS ORDERED: WARF1TAB83 PO (16:06)
[2023-10-23] MEDS ORDERED: SPIR25TA5 PO (16:06)
[2023-10-23] MEDS ORDERED: ALBU10.7 (16:06)
[2023-10-23] MEDS ORDERED: NITR0.4T48 SL (16:06)
[2023-10-23] MEDS ORDERED: AMIO100T PO (16:06)
[2023-10-23] MEDS ORDERED: SACU1TAB7 PO (16:06)
[2023-10-23] MEDS ORDERED: iohexol 350MG/ML 100ml bottle IV ONE (16:08)
[2023-10-23 17:09] LABS: INR 2.6 INR
[2023-10-23 17:40] LABS: PRO BRAIN NATRIURETIC PEPTIDE 47 PG/ML (0-125)
[2023-10-23] MEDS ORDERED: AMOX-580 PO (18:57)
[2023-10-23 19:15] VITALS: PULSE 61; TEMP 98.6; O2SAT 96
== END 2023-10-23 19:20 | disposition home or self-care (01) ==
LOC: ER 13:11
DX: J18.9 Pneumonia, unspecified organism (principal); E78.00 Pure hypercholesterolemia, unspecified; I10 Essential (primary) hypertension; F12.90 Cannabis use, unspecified, uncomplicated; F15.90 Other stimulant use, unspecified, uncomplicated; Z88.1 Allergy status to other antibiotic agents; Z88.5 Allergy status to narcotic agent; Z79.899 Other long term (current) drug therapy; Z79.2 Long term (current) use of antibiotics
CPT/HCPCS: 36415; 71045; 71275; 80048; 83880; 84484; 85008; 85025; 85610; 93005; 94640; 99285; J3490; Q9967; 94760

== ENCOUNTER 2024-02-28 15:05 | Emergency (ER) | payer MEDICAID ==
[~2024-02-28] VITALS: Ht 180.3 cm; Wt 134.9 kg
[~2024-02-28 15:05] MED LIST changes: -AMI200T PO; +AMIO100T PO; +CARV-50 PO; -CARV6.2553 PO; -SACU1TAB4 PO; +SACU1TAB7 PO; +SPIR25TA5 PO; +WARF1TAB83 PO
[2024-02-28 15:44] LABS: BASOPHILS % (AUTO) 0.2 % (0-1); EOSINOPHILS # (AUTO) 0.1 X10'3 (0-0.9); EOSINOPHILS % (AUTO) 1.4 % (0-6); HEMATOCRIT 42.9 % (42.0-52.0); LYMPHOCYTES # (AUTO) 1.7 X10'3 (1.1-4.8); LYMPHOCYTES % (AUTO) 16.4 % (21-51); MEAN CORPUSCULAR HEMOGLOBIN 30.5 PG (27.0-31.0); MEAN CORPUSCULAR HGB CONC 32.6 g/dL (33.0-36.5); MEAN CORPUSCULAR VOLUME 93.6 FL (78-98); MEAN PLATELET VOLUME 8.7 FL (7.4-10.4); MONOCYTES % (AUTO) 10.1 % (2-12); NEUTROPHILS # (AUTO) 7.4 X10'3 (1.8-7.7); NEUTROPHILS % (AUTO) 71.9 % (42-75); PLATELET COUNT 256 X10'3 (140-440); RED BLOOD COUNT 4.58 X10'6 (4.70-6.10); RED CELL DISTRIBUTION WIDTH 15.7 % (11.5-14.5); WHITE BLOOD COUNT 10.2 X10'3 (4.5-11.0)
[2024-02-28 15:56] LABS: ALANINE AMINOTRANSFERASE 20 U/L (12-78); ALBUMIN 3.7 G/DL (3.4-5.0); ALKALINE PHOSPHATASE 64 IU/L (46-116); ANION GAP 8 (8-16); ASPARTATE AMINO TRANSFERASE 22 U/L (10-37); BILIRUBIN,TOTAL 0.9 MG/DL (0.1-1.0); BLOOD UREA NITROGEN 21 MG/DL (7-18); BUN/CREATININE RATIO 15.1 (10.0-20.0); CALCIUM 8.2 MG/DL (8.5-10.1); CHLORIDE 105 MMOL/L (99-107); CREATININE 1.39 MG/DL (0.60-1.10); GLUCOSE 105 MG/DL (70-104); SODIUM 139 MMOL/L (135-145); TOTAL CARBON DIOXIDE 25.7 MMOL/L (24-32); TOTAL PROTEIN 7.3 G/DL (6.4-8.2); eCRCL 65 ML/MIN; eGFR 53 ML/MIN
[2024-02-28 16:01] LABS: POTASSIUM 4.4 MMOL/L (3.5-5.1)
[2024-02-28 16:04] LABS: PRO BRAIN NATRIURETIC PEPTIDE 40 PG/ML (0-125)
[2024-02-28 17:18] LABS: CALCIUM 8.6 MG/DL (8.5-10.1); MAGNESIUM 2.8 MG/DL (1.5-2.4)
[2024-02-28 17:53] VITALS: TEMP 98.5
[2024-02-28 18:47] VITALS: RESP 14; O2SAT 99
[2024-02-28 18:59] VITALS: BP 116/69; PULSE 62
== END 2024-02-28 19:16 | disposition home or self-care (01) ==
LOC: ER 15:06
DX: R55 Syncope and collapse (principal); R42 Dizziness and giddiness; F15.10 Other stimulant abuse, uncomplicated; I48.91 Unspecified atrial fibrillation; I25.10 Atherosclerotic heart disease of native coronary artery without angina pectoris; E78.00 Pure hypercholesterolemia, unspecified; I10 Essential (primary) hypertension; F12.90 Cannabis use, unspecified, uncomplicated; Z88.1 Allergy status to other antibiotic agents; Z88.5 Allergy status to narcotic agent; Z79.899 Other long term (current) drug therapy
CPT/HCPCS: 36415; 71045; 80053; 82310; 83735; 83880; 84484; 85025; 93005; 99285; J7030

== ENCOUNTER 2024-02-29 11:56 | Emergency (ER) | payer MEDICAID ==
[~2024-02-29] VITALS: Ht 180.3 cm; Wt 135.0 kg
[2024-02-29 12:08] VITALS: TEMP 97.7
[2024-02-29 12:45] LABS: BASOPHILS # (AUTO) 0.1 X10'3 (0-0.2); BASOPHILS % (AUTO) 1.1 % (0-1); EOSINOPHILS # (AUTO) 0.1 X10'3 (0-0.9); EOSINOPHILS % (AUTO) 1.9 % (0-6); HEMATOCRIT 41.4 % (42.0-52.0); HEMOGLOBIN 13.9 g/dl (14.0-17.9); LYMPHOCYTES # (AUTO) 1.2 X10'3 (1.1-4.8); MEAN CORPUSCULAR HEMOGLOBIN 31.5 PG (27.0-31.0); MEAN CORPUSCULAR HGB CONC 33.6 g/dL (33.0-36.5); MEAN CORPUSCULAR VOLUME 93.8 FL (78-98); MEAN PLATELET VOLUME 8.5 FL (7.4-10.4); MONOCYTES # (AUTO) 0.6 X10'3 (0-0.9); MONOCYTES % (AUTO) 9.4 % (2-12); NEUTROPHILS # (AUTO) 4.8 X10'3 (1.8-7.7); NEUTROPHILS % (AUTO) 69.6 % (42-75); PLATELET COUNT 249 X10'3 (140-440); RED BLOOD COUNT 4.41 X10'6 (4.70-6.10); RED CELL DISTRIBUTION WIDTH 15.2 % (11.5-14.5); WHITE BLOOD COUNT 6.8 X10'3 (4.5-11.0)
[2024-02-29 12:48] LABS: ALANINE AMINOTRANSFERASE 18 U/L (12-78); ALBUMIN 3.5 G/DL (3.4-5.0); ALKALINE PHOSPHATASE 63 IU/L (46-116); ANION GAP 7 (8-16); ASPARTATE AMINO TRANSFERASE 14 U/L (10-37); BILIRUBIN,TOTAL 0.6 MG/DL (0.1-1.0); BLOOD UREA NITROGEN 23 MG/DL (7-18); BUN/CREATININE RATIO 17.2 (10.0-20.0); CALCIUM 8.2 MG/DL (8.5-10.1); CHLORIDE 106 MMOL/L (99-107); CREATININE 1.34 MG/DL (0.60-1.10); GLUCOSE 110 MG/DL (70-104); POTASSIUM 4.1 MMOL/L (3.5-5.1); SODIUM 140 MMOL/L (135-145); TOTAL PROTEIN 7.1 G/DL (6.4-8.2); eCRCL 68 ML/MIN; eGFR 56 ML/MIN
[2024-02-29] MEDS: ondansetron 4mg rapidly disintigrating tab PO ONE (12:54)
[2024-02-29 12:56] LABS: PRO BRAIN NATRIURETIC PEPTIDE 73 PG/ML (0-125)
[2024-02-29 14:00] VITALS: RESP 14
[2024-02-29 15:24] VITALS: BP 106/51; PULSE 62; O2SAT 95
== END 2024-02-29 18:29 | disposition home or self-care (01) ==
LOC: ER 11:57
DX: R55 Syncope and collapse (principal); R07.89 Other chest pain; R06.02 Shortness of breath; R42 Dizziness and giddiness; I48.91 Unspecified atrial fibrillation; I25.10 Atherosclerotic heart disease of native coronary artery without angina pectoris; E78.00 Pure hypercholesterolemia, unspecified; I10 Essential (primary) hypertension; F12.90 Cannabis use, unspecified, uncomplicated; F15.90 Other stimulant use, unspecified, uncomplicated; Z88.1 Allergy status to other antibiotic agents; Z88.5 Allergy status to narcotic agent; Z79.899 Other long term (current) drug therapy
CPT/HCPCS: 36415; 71045; 80053; 83880; 84484; 85025; 93005; 99285

== ENCOUNTER 2025-03-28 13:50 | Emergency (ER) | payer MEDICAID ==
[~2025-03-28] VITALS: Ht 180.3 cm; Wt 143.2 kg
[2025-03-28 13:59] VITALS: TEMP 97.6
--- NOTE | 2025-03-28 14:03 | Physician Documentation ---
History of Present Illness ~ Chief Complaint: Chest Pain Stated Complaint: CHEST PAIN Time Seen by MD: 19:00 Primary Medical Doctor: Queenie ROWE Patient is a is a 54-year-old male that presents to the emergency department for complaints of chest pain x1 day. Reports that the pain seems to be intermittent and moving to different areas of his chest over that time frame. Patient reports that he took some antacids that relieved the pain temporarily. Patient reports that he has a history significant for cardiac arrest and other cardiac events multiple times although patient is unclear what those events axilla were. Patient reports he also has hypertension and he takes multiple medications. Reports his pain as a / at this time. Medication Reconciliation Allergies: Coded Allergies: vancomycin (Verified Allergy, Severe, 03/28/25) morphine (Verified Adverse Reaction, Unknown, agitation, 03/28/25) Scheduled Amiodarone HCl (Pacerone), 1 TAB PO DAILY, (Reported) Amlodipine Besylate (Amlodipine Besylate), 1 TAB PO DAILY, (Reported) Atorvastatin Calcium (Atorvastatin Calcium), 1 TAB PO DAILY, (Reported) Carvedilol (Carvedilol), 1 TAB PO BID, (Reported) Cyclobenzaprine* (Cyclobenzaprine*), 1 TAB PO TID, (Reported) Dapagliflozin Propanediol (Farxiga), 1 TAB PO DAILY, (Reported) Sacubitril/Valsartan (Entresto 49 mg-51 mg Tablet), 1 TAB PO BID, (Reported) Spironolactone (Spironolactone), 1 TAB PO DAILY, (Reported) Warfarin Sodium (Warfarin Sodium), 1 TAB PO DAILY, (Reported) Warfarin Sodium (Warfarin Sodium), 0.5 TAB PO DAILY, (Reported) Scheduled PRN Albuterol Sulfate (Proair Respiclick), 2 PUFFS IH Q6H PRN for SOB or wheezing, (Reported) Nitroglycerin SL* (Nitrostat SL*), 1 TAB SL Q5MIN PRN for Chest pain Q5min PRNx3-call MD, (Reported) Past Medical History Past Medical History: *APPRAISER TIMBER*, Atrial Fibrillation, Coronary Artery Disease, High Cholesterol, Hypertension, Myocardial Infarction, Pulmonary Embolism, Peptic Ulcer Disease, Kidney Stones, Renal Disease, Chronic Back Pain, Cellulitis, *PSYCH* Past Surgical History: abdominal surgery, angioplasty, orthopedic surgeries, pacemaker Patient History: Patient reports no known family medical history. Alcohol Use: Occasionally Drug Use: marijuana, methamphetamine Lives with: Family Lives In: Home Occupation: employed Review of Systems ROS As stated above in the HPI, otherwise all systems are reviewed and negative. Physical Exam Physical Exam VITALS: Reviewed and as above. GENERAL: Alert, no apparent distress. HEENT: Normocephalic, atraumatic, PERRL, EOMI, dry mucosa, no erythema RESPIRATORY: Lungs clear, normal breath sounds, no respiratory distress. CHEST: No accessory muscle use, no retractions CV: Regular rate, rhythm, no edema, no murmur, No: JVD GI: Soft, non-tender, bowels sounds present, no rebound, guarding, or rigidity BACK: No CVA tenderness, or swelling MUSCULOSKELETAL No deformities, no edema SKIN: Warm and dry, no rash NEURO: Oriented x4, No motor or sensory deficit PSYCH: Normal mood and affect, no agitation Progress Results/Orders Results/Orders Completed Orders - MICAELA PECK Lidocaine 2% Viscous (Xylocaine 2% Visco (03/28/25 19:25) Mag & Alum Hydrox/Simeth Susp (Maalox Or (03/28/25 19:25) Medications Received in ER Medications (Trade) Dose Ordered Sig/Ankush Route PRN Reason Start Time Stop Time Status Last Admin Dose Admin (Xylocaine 2% Viscous 15mL cup) 15 ml ONCE ONCE MM 03/28/25 19:25 03/28/25 19:26 DC 03/28/25 19:38 15 ML (Maalox oral suspension) 30 ml ONCE ONCE PO 03/28/25 19:25 03/28/25 19:26 DC 03/28/25 19:38 30 ML Vital Signs 03/28/25 03/28/25 03/28/25 13:59 18:47 19:02 Temp 97.6 Pulse 60 60 Resp 18 16 18 B/P (MAP) 112/61 156/75 (102) Pulse Ox 97 96 O2 Flow Rate 0 Laboratory Tests Test 03/28/25 14:19 White Blood Count 6.9 Red Blood Count 4.41 L Hemoglobin 13.2 L Hematocrit 39.8 L Mean Corpuscular Volume 90.3 Mean Corpuscular Hemoglobin 30.0 Mean Corpuscular Hemoglobin Concent 33.2 Red Cell Distribution Width 15.3 H Platelet Count 310 Mean Platelet Volume 7.8 Neutrophils (%) (Auto) 69.8 Lymphocytes (%) (Auto) 14.9 L Monocytes (%) (Auto) 10.5 Eosinophils (%) (Auto) 3.2 Basophils (%) (Auto) 1.6 H Neutrophils # (Auto) 4.8 Lymphocytes # (Auto) 1.0 L Monocytes # (Auto) 0.7 Eosinophils # (Auto) 0.2 Basophils # (Auto) 0.1 CBC Comment Sodium Level 141 Potassium Level 4.3 Chloride Level 108 H Carbon Dioxide Level 26.3 Anion Gap 7 L Blood Urea Nitrogen 18 Creatinine 1.23 H Estimated GFR/1.73 m2 61 BUN/Creatinine Ratio 14.6 Glucose Level 102 Calcium Level 8.6 Troponin I High Sensitivity 8 Pro-B-Type Natriuretic Peptide 317 H Albumin 3.0 L Chemistry Comments Medical Decision Making Additional info obtained from: other Findings Presenting to the emergency department for complaints of chest pain. Exam without evidence of volume overload so doubt heart failure. EKG without signs of active ischemia. Given the timing of pain to ER presentation, single troponin was negative so doubt NSTEMI. Presentation not consistent with acute PE (Wells low risk PERC negative),pneumothorax (not visualized on chest xr), thoracic aortic dissection, pericarditis, tamponade, pneumonia (no infectious symptoms, clear chest xr), myocarditis (no recent illness, neg trop). HEART score:4 arrives factors and previous history. Patient reported history significant for reflux previous diagnosis of GERD. Patient given GI cocktail with complete resolution of symptoms. Patient will be discharged to home with strict return precautions. With his primary care provider to renew his prescription of Protonix. Return to the emergency department with any worsening of his current symptoms or any additional concerning symptoms that we discussed here today i.e. chest pain diaphoresis shortness of breath discomfort that is not alleviated by antacids or discomfort that persists dizziness lightheadedness nausea vomiting or any other concerning symptoms that we discussed here today. Patient understood these instructions and agrees that he will return to the emergency department if he develops any additional concerning symptoms. Heart Score: 4 Differential Dx:Considerations: Include: angina, aortic dissection, chest wall pain, cholelithiasis, CHF, costochondritis, esophageal reflux/spasm, gastritis, herpes zoster, myocardial infarction, pericarditis, pleuritis, pancreatitis, pneumonia, pneumothorax, pulmonary embolus, other Departure Disposition: HOME / SELF CARE / HOMELESS Impression: Primary Impression: Chest pain Additional Impressions: Acid reflux GERD (gastroesophageal reflux disease) Condition: Stable Discharge Instructions: Food Choices for Gastroesophageal Reflux Disease, Adult, [id number], Gastroesophageal Reflux Disease, Adult, [id number] Additional Instructions: Presenting to the emergency department for complaints of chest pain. Exam without evidence of volume overload so doubt heart failure. EKG without signs of active ischemia. Given the timing of pain to ER presentation, single troponin was negative so doubt NSTEMI. Presentation not consistent with acute PE (Wells low risk PERC negative),pneumothorax (not visualized on chest xr), thoracic aortic dissection, pericarditis, tamponade, pneumonia (no infectious symptoms, clear chest xr), myocarditis (no recent illness, neg trop). HEART score:4 arrives factors and previous history. Patient reported history significant for reflux previous diagnosis of GERD. Patient given GI cocktail with complete resolution of symptoms. Patient will be discharged to home with strict return precautions. With his primary care provider to renew his prescription of Protonix. Return to the emergency department with any worsening of his current symptoms or any additional concerning symptoms that we discussed here today i.e. chest pain diaphoresis shortness of breath discomfort that is not alleviated by antacids or discomfort that persists dizziness lightheadedness nausea vomiting or any other concerning symptoms that we discussed here today. Patient understood these instructions and agrees that he will return to the emergency department if he develops any additional concerning symptoms. Referrals: NO PRIMARY CARE PROVIDER (PCP) Education Educated: Patient Educated regarding: diagnosis, treatment, need for follow up Signature Scribe Signature: A Attestation: Scribed for Micaela Peck by CORTEZ York . 03/28/25 20:14 MICAELA PECK Mar 28, 2025 14:03
--- NOTE | 2025-03-28 14:08 | ELECTROCARDIOGRAPH REPORT ---
[facility] Test Date: 2025-03-28 Test Time: 13:53:41 Pat Name: KIMBERLY DATA Department: EMERGENCY ROOM Room: Gender: M Employment Director: NOHEMI : 1970 Requested By: NATALIE PASCUAL Order Number: [id number] Reading MD: Measurements Intervals [place] Rate: 60 P: 5 ID: [id number] QRS: -20 QRSD: 117 T: 47 QT: 429 QTc: 429 Interpretive Statements Atrial-paced complexes Nonspecific intraventricular conduction delay Please click the below link to view image of tracing.
--- NOTE | 2025-03-28 14:25 | RADIOLOGY REPORT ---
CLINICAL HISTORY: CP TECHNIQUE: Single view of the chest was obtained. COMPARISON: DI CHEST,SINGLE VIEW on DOS: 02/29/24, DI CHEST,SINGLE VIEW on DOS: 02/28/24, DI CHEST,SINGLE VIEW on DOS: 02/27/24, CT CTA CHEST PE on DOS: 10/23/23, DI CHEST,SINGLE VIEW on DOS: 10/23/23 FINDINGS: The heart size and pulmonary vasculature are normal. The lungs are clear. There is a dual lead left chest wall pacing device. IMPRESSION: NO ACUTE CARDIOPULMONARY PROCESS.
[2025-03-28 14:35] LABS: MEAN PLATELET VOLUME 7.8 FL (7.4-10.4); RED CELL DISTRIBUTION WIDTH 15.3 % (11.5-14.5)
[2025-03-28 15:10] LABS: CREATININE 1.23 MG/DL (0.60-1.10); PRO BRAIN NATRIURETIC PEPTIDE 317 PG/ML (0-125); TOTAL CARBON DIOXIDE 26.3 MMOL/L (24-32); eCRCL 73 ML/MIN; eGFR 61 ML/MIN
[2025-03-28 18:47] VITALS: BP 156/75; PULSE 60; O2SAT 96
[2025-03-28 19:02] VITALS: RESP 18
[2025-03-28] MEDS: LIDOcaine 2% Viscous 15ml cup MM ONE (19:38)
[2025-03-28] MEDS: mag hydrox/Alum hydrox/simeth 30ml oral suspension PO ONE (19:38)
== END 2025-03-28 20:19 | disposition home or self-care (01) ==
LOC: ER 13:50
DX: R07.89 Other chest pain (principal); K21.9 Gastro-esophageal reflux disease without esophagitis; I10 Essential (primary) hypertension; I25.10 Atherosclerotic heart disease of native coronary artery without angina pectoris; E78.00 Pure hypercholesterolemia, unspecified; I48.91 Unspecified atrial fibrillation; I25.2 Old myocardial infarction; G89.29 Other chronic pain; F15.90 Other stimulant use, unspecified, uncomplicated; F12.90 Cannabis use, unspecified, uncomplicated; Z86.711 Personal history of pulmonary embolism; Z88.1 Allergy status to other antibiotic agents; Z88.5 Allergy status to narcotic agent; Z87.442 Personal history of urinary calculi; Z95.0 Presence of cardiac pacemaker; Z79.899 Other long term (current) drug therapy; Z72.89 Other problems related to lifestyle; Z79.01 Long term (current) use of anticoagulants
CPT/HCPCS: 71045; 80048; 83880; 84484; 85025; 93005; 99285